=== PATIENT | male | born 1940 | race Caucasian/White ===

== ENCOUNTER → 2016-05-26 | Outpatient (CLI) | payer OTHER, MEDICARE ==
[~2016-05-26] VITALS: Ht 167.6 cm; Wt 73.0 kg
[~2016-05-26] MED LIST: ALPRAZOLAM 0.50.5 M1 PO; ASPIRIN EC325 M1 PO; ASPIRIN EC81 M1 PO; BAYER BACK AND BODY PO; CARAFATE 1 GM TA1 G1 PO; CIPROFLOXACIN500 M1 PO; CYCLOBENZAPRINE10 MG PO; DOLOPHINE HCL10 MG PO; FLAGYL500 MG PO; FLEXERIL PO; HYDROCHLOROTH12.5 MG PO; HYDROCODON-ACE1 EAC5 PO; HYDROCODONE-AP1 EACH PO; MEDROLDOSEPACK PO; MELOXICAM7.5 MG PO; METHADONE HCL 110 M1 PO; METHADONE HCL 110 MG PO; METHADOSE10 MG PO; METOCLOPRAMIDE 55 M1 PO; MIRALAX17 G1; MIRALAX255 GM PO; MOBIC7.5 MG PO; NEURONTIN 300300 M1 PO; NEURONTIN 300M300 M2 PO; NEXIUM 40 MG CA40 M1 PO; NEXIUM40 MG PO; NORCO 10-325 T1 EACH PO; NORCO 5-325 TA1 EACH PO; NORFLEX100 MG PO; ONDANSETRON HCL4 M2 PO; PERCOCET 5-3251 EACH PO; PREDNISONE 20 M20 M1; PROAIR HFA8.5 GM; SERTRALINE HCL100 MG PO; SINUS & ALLERG1 EAC1 PO; SPIRIVA; VITAMIN B-12500 MCG PO; VITAMIN D1000 UNI1 PO; VITAMINC500 PO; XANAX 0.5 MG0.5 M1 PO; XANAX 0.5 MG0.5 MG PO; ZOCOR40 MG PO; ZOLOFT 50 MG TA50 M1 PO; ZOLOFT100 MG PO; ZOLOFT50 MG PO
--- NOTE | ~2016-05-26 | HPC ---
[facility] [place] [address] PAIN MANAGEMENT CONSULTATION Name: JESSEERUDI C Room #: REG GLORIA Simón#: [id number] Admission: 05/26/16 Attend Phys: Lizzeth Tapia MD Discharge: Date of : 40 Report #: [id number] THIS REPORT FOR: //name// CC: Cb Jay DATE OF SERVICE: 05/26/2016 FOLLOWUP COMPLAINT: "I am feeling janice of tired. I still have the ulcers in my stomach. I am anemic." FOLLOWUP HISTORY: The patient is a 75-year-old gentleman who has been followed in the pain clinic because of chronic pain involving his shoulders, back, and iliac spine. He has a history of gastroesophageal ulcers. He feels that he may be pretty anemic at this juncture. After a little exertion such as coming to the pain clinic, he will go home, rest and sleep for many hours. He has called his primary physician. He is scheduled to be seen by a superintendent menagerie. He would like to have his medications renewed. PHYSICAL EXAMINATION: Height 167 cm, weight 73 kg, BMI is 26. He complains of pain in his low back, left side and has some GI discomfort. He has not been vomiting. He has not seen blood. He rates his pain as a 3/10. He does note that he is quite a bit more tired than he would like to be. IMPRESSION: 1. Chronic pain involving shoulders, low back, and legs. 2. History of gastroesophageal problems with ulcers-the patient is calling his primary to be followed up by superintendent menagerie. 3. History of anemia. RECOMMENDATION: We discussed treatment options with the patient. Risks and benefits of opioid therapy were again reviewed. Possible complications were discussed. Development of tolerance can develop. A script for methadone 10 mg 1 p.o. t.i.d., 90 tablets and hydrocodone 10/325 one p.o. t.i.d. has been written. He will call us if he has any problems with his medications. We would like to thank you for letting us participate in his care. We hope he continues to improve. By: 1302 1811 Lizzeth Tapia MD /nt
[2016-05-26 08:32] VITALS: BP 136/81
== END ==
LOC: PAIN 06:41
DX: M25.512 Pain in left shoulder (principal); M25.511 Pain in right shoulder; M79.605 Pain in left leg; M79.604 Pain in right leg; M54.5 Low back pain; D64.89 Other specified anemias; F17.200 Nicotine dependence, unspecified, uncomplicated; Z87.19 Personal history of other diseases of the digestive system

== ENCOUNTER → 2016-07-12 | Outpatient (CLI) | payer OTHER, MEDICARE ==
[~2016-07-12] VITALS: Ht 167.6 cm; Wt 72.6 kg
[~2016-07-12] MED LIST changes: +CYCLOBENZAPRINE5 MG PO; +FEROSUL325 M1 PO; +OMEPRAZOLE40 MG PO; +PROAIR HFA8.5 GM INH
--- NOTE | ~2016-07-12 | S ---
[facility] [place] [address] SURGICAL PATH RPT PROCEDURE Name: MUSHTAQ HOOKS Room #: REG [facility]#: [id number] Admission: 07/12/16 Date of : 40 Discharge: Report #: [id number] Path Case #: [id number] PATHOLOGY REPORT COLLECTION DATE: 07/12/2016 RECEIVED DATE: 07/13/2016 SUBMITTING PHYS: Dr. Nimesh Iniguez OTHER PHYS: Dr. Cb Samuels SPECIMEN(S) RECEIVED: A.Duodenal bx B.Gastric bx * * * * * * * * * * * * FINAL DIAGNOSIS: A. Small bowel mucosa, duodenum, endoscopic biopsy: - No diagnostic abnormalities present. B. Gastric mucosa, endoscopic biopsy: - Focal mild reactive gastropathy. - Negative for intestinal metaplasia or atrophy. - Negative for Helicobacter pylori. COMMENT: Helicobacter pylori immunohistochemical stain performed on block B1 - Negative. PATHOLOGIST: Kristel Medeiros M.D. REPORT ELECTRONICALLY SIGNED BY: Kristel Medeiros M.D. DATE/TIME: 07/14/2016 17:33 * * * * * * * * * * * * GROSS PATHOLOGY: A. Received in formalin labeled "Mushtaq Hooks duodenal biopsy," are 3 segments of ny soft tissue measuring 0.8 x 0.5 x 0.3 cm in aggregate dimensions and ranging from 0.3 to 0.5 cm in maximum dimension. The specimen is submitted entirely in cassette A1. B. Received in formalin labeled "Mushtaq Pinnell, gastric biopsy," are 3 segments of ny soft tissue measuring 0.7 x 0.5 x 0.2 cm in aggregate dimensions and ranging from 0.5 to 0.7 cm in maximum dimension. The specimen is submitted entirely in cassette B1. (KAH; 07/13/2016) CLINICAL HISTORY: Pre-op diagnosis: Anemia Post-op diagnosis: Diverticulosis [facility] [place] [address] SURGICAL PATH RPT PROCEDURE Name: JESSEEMUSHTAQ C Room #: REG [facility].#: [id number] Admission: 07/12/16 Date of : 40 Discharge: Report #: [id number] Path Case #: [id number] INITIAL CPT CODE(S): A; 06531 B; 26983, 32199 Professional services performed by [facility] at [address], [place] [address] Technical services performed by [facility] at [address] [place] [address], [place] [address]. [facility] [address] [place] [address] PHONE: [phone] DIRECTOR: Caesar Perkins M.D. * * * END OF REPORT * * *
--- NOTE | ~2016-07-12 | P ---
[facility] [place] [address] PROCEDURE REPORT Name: RUDI HOOKS [id number] Admission: 07/12/16 Attend Phys: Nimesh Meehan Discharge: Date of : 40 Report #: [id number] THIS REPORT FOR: //name// CC: Nimesh Samuels DO DATE OF SERVICE: 07/12/2016 PROCEDURE PERFORMED: Colonoscopy. HISTORY OF PRESENT ILLNESS: The patient is a 76-year-old male with a history of iron deficiency anemia. Upper endoscopy just performed, which showed mild duodenal stricture, but otherwise normal. No evidence of bleeding. Plan is for colonoscopy next. PROCEDURE: The risks and benefits of the procedure were explained to the patient, those risks including, but not limited to bleeding, perforation, and the risk of sedation. He understood these risks and gave informed consent. Sedation was given using propofol per anesthesia. Next, a digital rectal exam was initially performed, which was normal. Next, using a standard Comprimaton colonoscope, the scope was placed in the patient's anus and advanced under direct vision to the cecum. The overall prep was good. The cecum and ileocecal valve were normal in appearance. The ascending and transverse colon were normal. Scattered diverticula were noted in the descending and sigmoid colon, no evidence of inflammation, otherwise normal. The rectal mucosa was normal. On retroflexion, no abnormalities were noted. The scope was then withdrawn and the procedure terminated. The patient tolerated the procedure well. IMPRESSION: 1. Left-sided diverticulosis. 2. Otherwise, normal colonoscopy. RECOMMENDATIONS: Await duodenal biopsies to rule out celiac sprue. If biopsies are negative, we would monitor hemoglobin. If the patient remained Hemoccult positive in the future, may need to consider an M2 capsule of his small bowel. Of note, he would likely need an upper endoscopy with placement of capsule into the duodenum because of his duodenal stricture. Thank you for allowing me to participate in his care. <ELECTRONICALLY SIGNED> By: Nimesh Iniguez MD 07/15/16 0812 1034 1449 Nimesh Iniguez MD /nt
--- NOTE | ~2016-07-12 | P ---
[facility] [place] [address] PROCEDURE REPORT Name: RUDI HOOKS Room #: REG [facility] Simón#: [id number] Admission: 07/12/16 Attend Phys: Nimesh Meehan Discharge: Date of : 40 Report #: [id number] THIS REPORT FOR: //name// CC: Nimesh Samuels DO DATE OF SERVICE: 07/12/2016 PROCEDURE PERFORMED: Upper endoscopy with biopsies and balloon dilation. HISTORY OF PRESENT ILLNESS: The patient is a 76-year-old male with a history of iron deficiency anemia. He has previous history of duodenal ulcer and esophagitis, he does take omeprazole 40 mg on a daily basis. Most recent hemoglobin was 10.7 and this was on 04/04/2016, with an MCV of 78. He denies any obvious blood in his stools. He does report poor appetite and feeling generally weak. PROCEDURE: The risks and benefits of the procedure were explained to the patient, those risks including, but not limited to bleeding, perforation, and the risk of sedation. He understood these risks and gave informed consent. Sedation was given using propofol per anesthesia. Next, using a standard Kee Squaren upper endoscope, the scope was placed in the patient's mouth and advanced under direct vision through the esophagus, stomach, and into the second portion of the duodenum. The esophagus was normal throughout. The GE junction was normal. Overall, the gastric mucosa was normal. No evidence of erosions or ulcerations. The pylorus was normal and patent. In the first portion of the duodenum, a benign appearing stricture was noted. I was able to pass the scope through this area without difficulty. The second portion of the duodenum was normal. There was no evidence of ulcerations or AVMs. Biopsies were obtained to rule out the possibility of celiac sprue. Because of his poor appetite, I did proceed with balloon dilation of the duodenal stricture using a 10, 11, and 12 mm balloon. This was held in place of 12 mm for one minute. There was no mucosal tear noted after balloon dilation. At this point, the scope was then withdrawn and the procedure terminated. The patient tolerated the procedure well. IMPRESSION: 1. Mild duodenal stricture, status post balloon dilation. 2. Otherwise, normal upper endoscopy. RECOMMENDATIONS: 1. Await biopsy results. 2. Continue PPI therapy. 3. We will proceed with colonoscopy next today. [address] [address] PROCEDURE REPORT Name: RUDI HOOKS Room #: REG [facility] Simón#: [id number] Admission: 07/12/16 Attend Phys: Nimesh Meehan Discharge: Date of : 40 Report #: [id number] Thank you for allowing me to participate in his care. <ELECTRONICALLY SIGNED> By: Nimesh Iniguez MD 07/15/16 0812 1032 1253 Nimesh Iniguez MD /geovany
== END ==
LOC: GI 06-21 11:10
DX: D50.8 Other iron deficiency anemias (principal); K31.9 Disease of stomach and duodenum, unspecified; K57.30 Diverticulosis of large intestine without perforation or abscess without bleeding; K31.5 Obstruction of duodenum; F41.8 Other specified anxiety disorders; G47.30 Sleep apnea, unspecified; J21.9 Acute bronchiolitis, unspecified; K21.9 Gastro-esophageal reflux disease without esophagitis; J43.9 Emphysema, unspecified; D64.89 Other specified anemias; Z98.890 Other specified postprocedural states; Z79.899 Other long term (current) drug therapy; Z96.611 Presence of right artificial shoulder joint
CPT/HCPCS: 62110; 62900

== ENCOUNTER → 2016-09-01 | Outpatient (CLI) | payer OTHER, MEDICARE ==
[~2016-09-01] VITALS: Ht 167.6 cm; Wt 74.8 kg
--- NOTE | ~2016-09-01 | HPC ---
[facility] [place] [address] PAIN MANAGEMENT CONSULTATION Name: RAYRAYPAYTONRUDI C Room #: REG [facility] Simón#: [id number] Admission: 09/01/16 Attend Phys: Lizzeht Tapia MD Discharge: Date of : 40 Report #: [id number] THIS REPORT FOR: //name// CC: Cb Jay DATE OF SERVICE: 09/01/2016 CHIEF COMPLAINT: I went to see my GI doctor and I am still anemic. FOLLOWUP HISTORY: The patient is a 76-year-old gentleman who has been seen in the pain clinic and follow because of chronic pain involving his shoulders, back and legs. He also has a history of gastric problems. There appears to be a problem with his hemoglobin. He has been placed on iron pills in the past. He continues to be anemic. They have done upper and lower gastrointestinal evaluations. He feels that his energy level is quite low. He finds that use of methadone 10 mg p.o. t.i.d. and hydrocodone 10 mg tablets t.i.d. are helpful. Without them, he feels that he is unable to get up and move and engage in activities of daily living. He feels "washed out and tired." He continues to have chronic pain involving his back, shoulders and legs. The patient looks very good color-muhammad. He is pink. Less pale than he has in recent times. PHYSICAL EXAMINATION: Blood pressure 145/88, pulse 89, respiratory rate 16, room air saturation is 97%. Height 5 feet 6 inches, weight 164 pounds, BMI is 26. The patient walks with use of a cane. Complains of pain and discomfort in his lower back with radiation down to the left side and describes the intensity of his discomfort as between 3 and 5. IMPRESSION: 1. Chronic pain involving shoulders, back and legs, improved with use of opioid therapy. The patient states he keeps his medications in a controlled environment and finds that they are quite efficacious and helping him stay active. 2. History of gastroesophageal problems and continues to be followed by his project asst. 3. History of anemia, still being worked up by his primary care doctors and project asst. RECOMMENDATIONS: We will continue with the patient's current medications. We explained the new requirement by the CDC for opioid equivalents of morphine, which are about 100. We will start to slowly decrease his opioid medication to comply. He agrees. We will decrease from three 10 mg t.i.d. to 10 mg a.m., 5 mg midday, 10 mg at bedtime. He will call us if [place] [address] PAIN MANAGEMENT CONSULTATION Name: RUDI HOOKS Room #: REG GLORIA Gr#: [id number] Admission: 09/01/16 Attend Phys: Lizzeth Tapia MD Discharge: Date of : 40 Report #: [id number] change in medication. We would like to thank you for letting us participate in his care. We hope he continues to improve. By: 1546 1709 Lizzeth Tapia MD /nt
[2016-09-01 08:42] VITALS: BP 145/88
== END | disposition home or self-care (01) ==
LOC: PAIN 07:36
DX: M25.512 Pain in left shoulder (principal); M25.511 Pain in right shoulder; M54.5 Low back pain; M79.605 Pain in left leg; M79.604 Pain in right leg; D64.9 Anemia, unspecified; F17.200 Nicotine dependence, unspecified, uncomplicated

== ENCOUNTER → 2017-02-19 | Emergency (ER) | payer OTHER, MEDICARE ==
[~2017-02-19] VITALS: Ht 162.6 cm; Wt 75.3 kg
[~2017-02-19] MED LIST changes: +CYMBALTA60 MG PO; +PANTOPRAZOLE SO40 M1 PO; +PROTONIX40 M1 PO; +TRAZODONE HCL50 MG PO; +WELLBUTRIN SR150 MG PO
--- NOTE | ~2017-02-19 | EKG ---
[place] [address] [facility] [employer] [address] ELECTROCARDIOGRAM REPORT Name: RUDI HOOKS [id number] Admission: 02/19/17 Attend Phys: Discharge: Date of : 40 Report #: [id number] THIS REPORT FOR: //name// [facility] ED Test Date: 2017-02-19 Test Time: 15:10:56 Pat Name: RUDI HOOKS Department: Room: Gender: M Bilingual Customer Service: Ange SUAREZ : 1940 Requested By: Arianna Hobbs Order Number: [id number] MD: Kevan Lujan Measurements Intervals [place] Rate: 83 P: 67 SD: 166 QRS: 57 QRSD: 90 T: 71 QT: 397 QTc: 467 Interpretive Statements Sinus rhythm Atrial premature complexes Baseline wander in lead(s) V3,V4 Compared to ECG 01/23/2015 17:15:34 Atrial premature complex(es) now present Electronically Signed On 02-19-2017 15:54:05 [employer] by Kevan Lujan [email or web address] <ELECTRONICALLY SIGNED> By: Kevan Lujan MD 02/19/17 1554 1510 1510 Kevan Lujan MD /LAURA
[2017-02-19 15:18] LABS: ABSOLUTE NEUTROPHILS 5.7 thou/uL (1.4-8.2); EOSINOPHILS 1.6 % (0.0-3.0); HEMATOCRIT 47.7 % (42.0-52.0); HEMOGLOBIN 16.3 gm/dL (14.0-18.0); LYMPHOCYTES 18.3 % (24.0-44.0); MCH 30.3 pg (26.0-34.0); MCHC 34.2 g/dL (28.0-37.0); MCV 88.6 fL (80.0-100.0); MONOCYTES 5.6 % (1.0-8.0); PLATELET COUNT 199 thou/uL (150-400); POLYS 73.5 % (36.0-66.0); RBC 5.38 mil/uL (4.50-6.00); WBC 7.7 thou/uL (4.0-11.0)
[2017-02-19 15:29] LABS: ANION GAP 10 mmol/L (7-16); BUN 10 mg/dL (7-18); CALCIUM 9.9 mg/dL (8.5-10.1); CHLORIDE 102 mmol/L (98-107); CO2 28 mmol/L (21-32); GLUCOSE 107 mg/dL (74-106); POTASSIUM 4.3 mmol/L (3.5-5.1); SODIUM 140 mmol/L (136-145)
[2017-02-19 15:38] LABS: TROPONIN-I < 0.04 ng/mL (<0.06)
[2017-02-19 15:54] VITALS: BP 140/92
== END ==
LOC: ER 15:00
PROVIDERS: Emergency Medicine
DX: R53.1 Weakness (principal); F32.9 Major depressive disorder, single episode, unspecified; F41.9 Anxiety disorder, unspecified; G89.29 Other chronic pain; M54.9 Dorsalgia, unspecified; J32.9 Chronic sinusitis, unspecified; G47.30 Sleep apnea, unspecified; J44.9 Chronic obstructive pulmonary disease, unspecified; F17.210 Nicotine dependence, cigarettes, uncomplicated; Z86.2 Personal history of diseases of the blood and blood-forming organs and certain disorders involving the immune mechanism; Z88.0 Allergy status to penicillin; Z96.611 Presence of right artificial shoulder joint

== ENCOUNTER 2017-02-20 11:18 | Inpatient (IN) | payer OTHER, MEDICARE ==
[~2017-02-20] VITALS: Ht 162.6 cm; Wt 66.4 kg
--- NOTE | ~2017-02-20 | EKG ---
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 02/20/17 1737 1139 113 Frandy Stewart MD, FACC /EPI
--- NOTE | ~2017-02-20 | HC ---
[facility] [place] [address] CONSULTATION Name: RAYRAYPAYTONRUDI C Room #: 206-P [facility] IN ..#: [id number] Admission: 02/20/17 Attend Phys: Compa Narvaez MD Discharge: Date of : 40 Report #: [id number] THIS REPORT FOR: //name// CC: Cb Narvaez DATE OF SERVICE: 02/21/2017 HISTORY OF PRESENT ILLNESS: This is a 76-year-old male patient who was evaluated by me for any neurological etiology for the patient's passing out spell. The patient was discussed with the nurses looking after this patient. This patient was trying to get up, his blood pressure was trace low and looks like the patient passed out at that time. I do not believe any tonic-clonic activity was noticed. I did not see much on the monitor. His blood pressure was somewhat low, but it was taken after he has been lying. REVIEW OF SYSTEMS: Indicate that this patient has a longstanding intractable back pain he has that is in the middle of the back. It radiates forward. He had MRI long time ago. He does not know what that MRI shows. He does not think he can do any more MRIs because he is very claustrophobic. He has numerous other problems listed in the chart, which include chronic back pain, one time hypertensive emergency, history of upper gastrointestinal bleed, anxiety and depression. This was his relevant 14-point review of systems. PAST MEDICAL HISTORY: Positive for back pain. FAMILY HISTORY: Negative for early age stroke. SOCIAL HISTORY: He has a history of smoking as well as drinking. PHYSICAL EXAMINATION: NEUROLOGICAL: Indicate he is alert. He is responsive. He can follow simple commands. His speech, concentration, fund of knowledge and memory is at baseline. Cranial nerve examination 2 through 12 is unremarkable. His neuromuscular examination for strength, sensation, reflexes and tone are symmetrical. There is no meningeal sign. I could not have a very good look at the patient's fundus. GENERAL: He is a reasonably well-developed individual who does not have any dysmorphic features of eyes, ears and face. NECK: He has no thyroid mass or carotid bruits. EXTREMITIES: Pulses are difficult to feel. He has no edema, cyanosis or jaundice. CARDIAC: Examination does not show any arrhythmia, which can explain the patient's symptom. RESPIRATORY: He has no respiratory difficulty or rhonchi. VITAL SIGNS: His blood pressure has been running persistently low about 98/59 [facility] [address] [place] [address] CONSULTATION Name: RUDI HOOKS Room #: 206-P [facility] IN [facility]#: [id number] Admission: 02/20/17 Attend Phys: Compa Narvaez MD Discharge: Date of : 40 Report #: [id number] and when he came in, HIS blood pressure was as high as 201/117. LABORATORY DATA: Indicate a white count of 28.8, which is increased since yesterday. His BUN is 90 and creatinine is 2.0. IMPRESSION AND PLAN: Unlikely that there is any neurological etiology for the patient's symptoms. His blood pressure has been running persistently low for his size and he was hypertensive when he came in. That lower blood pressure in relation to recent high blood pressure may very well contribute to his symptoms. He will not do an MRI, so I will do an EEG and a carotid Doppler. If that does not show any abnormality neurologically, I do not think we can do much, especially because he also has a chronic renal failure. The most likely cause is systemic and I will suggest continue to concentrate on evaluation and management of his systemic problem, especially his blood pressure. I will look at these testing and followup, but we will suggest concentrating on systemic causes in this patient. Thank you very much for this referral. <ELECTRONICALLY SIGNED> By: Tho Beavers MD 02/23/172000 1522 0038 Tho Beavers MD /nt
--- NOTE | ~2017-02-20 | EEG ---
[facility] [place] [address] ELECTROENCEPHALOGRAM Name: JESSEERUDI Antwon Room #: 206-P ADM IN M.R.#: [id number] Admission: 02/20/17 Attend Phys: Compa Narvaez MD Discharge: Date of : 40 Report #: [id number] THIS REPORT FOR: //name// CC: Cb Narvaez DATE OF SERVICE: 02/21/2017 This patient is being evaluated for an episode where he passed out. EEG is being done to evaluate the possibility of seizures. Background activity in this patient's EEG is about 11 Hz and 40 microvolt. There is a symmetrical activity. Photic stimulation was unremarkable. This patient became drowsy and that is associated with bilateral slowing. Throughout the record, no active epileptiform activity was noticed. IMPRESSION: This patient's electroencephalogram is within normal limit. Thank you very much for this referral. <ELECTRONICALLY SIGNED> By: Tho Beavers MD 02/23/172001 1706 46 Tho Beavers MD /nt
--- NOTE | ~2017-02-20 | P ---
[facility] [place] [address] PROCEDURE REPORT Name: JESSEERUDI Antwon Room #: 206-P ADM IN M.R.#: [id number] Admission: 02/20/17 Attend Phys: Compa Narvaez MD Discharge: Date of : 40 Report #: [id number] THIS REPORT FOR: //name// CC: Cb Samuels DO Compa Narvaez MD DATE OF SERVICE: 02/22/2017 PATIENT OF: Dr. Compa Narvaez and Dr. Cb Samuels. INDICATION FOR PROCEDURE: This patient has had coffee-ground emesis and melena. His hemoglobin has dropped somewhat since admission. EGD is being performed to try to discover the source. His BUN is elevated indicating an upper GI source of blood loss. Informed consent for this procedure was obtained prior to the administration of any medication. The risks of the procedure, which include bleeding, perforation, infection, complications of sedation and the possibility I could miss something have been explained to the patient and he has indicated his consent by signing. Propofol was slowly titrated before and during this procedure for the patient comfort by the anesthesia service. The We[employer]n upper videoscope was introduced through the upper esophageal sphincter and advanced under direct visualization to the descending duodenum. Findings are noted on withdrawal of the scope. In the duodenum, there is a postbulbar ulcerated stricture, through which the scope easily passes. I saw no evidence of any bleeding, but there were some white based ulcerations that were very shallow both pre-stricture and post-stricture. Diffuse gastritis with erythema and a watermelon stomach, nonbleeding. Diffuse severe ulcerations of the entire esophagus, nonbleeding at this time. The scope was withdrawn. The patient went to the recovery area in stable condition. He tolerated the procedure well. IMPRESSION: 1. Postbulbar stricture with ulcerations, nonbleeding, no visible vessels, white based ulcers. Scope passes through the stricture easily, but it may need to be dilated. 2. Diffuse erythema of the entire stomach. 3. 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 4. Severe ulceration of the entire esophagus. RECOMMENDATIONS: To avoid nonsteroidals and aspirin. Continue the proton pump inhibitor drip for another 24 hours and then switch to p.o. Protonix q.[address] [address] PROCEDURE REPORT Name: RUDI HOOKS Room #: 206-P [facility] IN .R.#: [id number] Admission: 02/20/17 Attend Phys: Compa Narvaez MD Discharge: Date of : 40 Report #: [id number] We will start him on a clear liquid diet, advance as tolerated. He should avoid nonsteroidal anti-inflammatory medications and aspirin. He should repeat an EGD in 12 weeks to assess ulcer healing of the esophagus and to see if the biopsies are needed to rule out Daley's. Thank you very much once again for allowing me to participate in his care, Dr. Narvaez and Dr. Samuels. <ELECTRONICALLY SIGNED> By: Yenifer Abbott DO 02/22/17 1736 1208 1658 Yenifer Abbott DO /nt
[2017-02-20 11:18] VITALS: BP 201/117
[~2017-02-20 11:18] MED LIST changes: -CYMBALTA60 MG PO; -PANTOPRAZOLE SO40 M1 PO; -PROTONIX40 M1 PO; -TRAZODONE HCL50 MG PO; -WELLBUTRIN SR150 MG PO
[2017-02-20 12:09] LABS: ABSOLUTE NEUTROPHILS 15.7 thou/uL (1.4-8.2); BASOPHILS 0.4 % (0.0-2.0); HEMATOCRIT 51.2 % (42.0-52.0); HEMOGLOBIN 17.6 gm/dL (14.0-18.0); LYMPHOCYTES 4.7 % (24.0-44.0); MCH 30.6 pg (26.0-34.0); MCHC 34.3 g/dL (28.0-37.0); MCV 89.1 fL (80.0-100.0); MONOCYTES 2.9 % (1.0-8.0); PLATELET COUNT 219 thou/uL (150-400); RBC 5.75 mil/uL (4.50-6.00); WBC 17.1 thou/uL (4.0-11.0)
[2017-02-20 12:17] LABS: ANION GAP 13 mmol/L (7-16); BUN 15 mg/dL (7-18); CALCIUM 10.3 mg/dL (8.5-10.1); CHLORIDE 98 mmol/L (98-107); CO2 27 mmol/L (21-32); CREATININE 1.1 mg/dL (0.7-1.3); GLUCOSE 186 mg/dL (74-106); POTASSIUM 4.2 mmol/L (3.5-5.1); SODIUM 138 mmol/L (136-145)
[2017-02-20 12:27] LABS: ALBUMIN 4.3 g/dL (3.4-5.0); SGOT 21 U/L (15-37); SGPT 23 U/L (30-65); TOTAL BILIRUBIN 0.5 mg/dL (<0.1-1.0); TOTAL PROTEIN 8.8 g/dL (6.4-8.2); TROPONIN-I < 0.04 ng/mL (<0.06)
[2017-02-20 14:37] LABS: URINE BLOOD 3+ (Negative); URINE CLARITY CLEAR; URINE COLOR YELLOW; URINE GLUCOSE-RANDOM* NEGATIVE (Negative); URINE KETONES 3+ (Negative); URINE LEUKOCYTES-REFLEX NEGATIVE (Negative); URINE NITRITE-REFLEX NEGATIVE (Negative); URINE PROTEIN (DIPSTICK) 3+ (Negative); URINE SPECIFIC GRAVITY >= 1.030 (1.005-1.035); URINE UROBILINOGEN 0.2 E.U./dl (0.2-1.0)
[2017-02-20 14:39] LABS: ICTOTEST (BILI CONFIRMATORY) Negative (Negative); URINE BILIRUBIN NEGATIVE (Negative)
[2017-02-20 14:47] LABS: MUCUS 0-3 Light strn/LPF (None Seen); SQUAMOUS 0-3 Few /LPF (0-3)
[2017-02-20 14:48] LABS: BACTERIA-REFLEX 1-9 Few /HPF (None Seen); HYALINE CASTS 0-3 Few /LPF (None Seen); URINE WBC-REFLEX 6-15 Few /HPF (0-5); WBC CLUMPS Few (None Seen)
[2017-02-20 14:49] LABS: CRYSTALS None Seen /LPF (None Seen); URINE RBC >20 Many /HPF (0-2)
[2017-02-20 15:07] LABS: AMP/METHAMP Negative (Negative); BARBITURATES Negative (Negative); BENZODIAZEPINES Negative (Negative); COCAINE Negative (Negative); METHADONE POSITIVE (Negative); OPIATES POSITIVE (Negative); PCP Negative (Negative)
[2017-02-20 16:17] LABS: TSH 0.735 uIU/mL (0.358-3.740)
[2017-02-20 16:49] VITALS: BP 138/95
[2017-02-20 16:53] VITALS: BP 138/95
[2017-02-20 17:05] VITALS: BP 137/88
[2017-02-20 18:18] VITALS: BP 113/72
[2017-02-20 20:30] VITALS: BP 101/61
[2017-02-21] VITALS (8 sets, daily range): BP systolic 88–130; BP diastolic 55–76
[2017-02-21 09:12] LABS: HEMATOCRIT 42.9 % (42.0-52.0); MCH 29.6 pg (26.0-34.0); MCHC 33.4 g/dL (28.0-37.0); MCV 88.4 fL (80.0-100.0); PLATELET COUNT 218 thou/uL (150-400); RBC 4.86 mil/uL (4.50-6.00); RDW 13.2 % (10.5-14.5); WBC 28.8 thou/uL (4.0-11.0)
[2017-02-21 09:14] LABS: GLYCOHEMOGLOBIN (HGB A1C) 5.3 % (4.8-5.6)
[2017-02-21 09:19] LABS: CALCIUM 9.6 mg/dL (8.5-10.1); POTASSIUM 4.2 mmol/L (3.5-5.1)
[2017-02-21 09:22] LABS: HEMOGLOBIN 14.4 gm/dL (14.0-18.0)
[2017-02-21 10:53] LABS: ATYPICAL LYMPHS 8 %
[2017-02-21 16:49] LABS: HEMATOCRIT 42.3 % (42.0-52.0); HEMOGLOBIN 13.8 gm/dL (14.0-18.0); MCH 29.8 pg (26.0-34.0); MCHC 32.7 g/dL (28.0-37.0); RBC 4.65 mil/uL (4.50-6.00); RDW 13.2 % (10.5-14.5); WBC 25.1 thou/uL (4.0-11.0)
[2017-02-21 17:01] LABS: CALCIUM 9.3 mg/dL (8.5-10.1); CREATININE 1.8 mg/dL (0.7-1.3); POTASSIUM 4.1 mmol/L (3.5-5.1)
[2017-02-22 00:27] VITALS: BP 132/79
[2017-02-22 03:16] LABS: HEMATOCRIT 33.6 % (42.0-52.0); MCH 30.1 pg (26.0-34.0); MCHC 33.4 g/dL (28.0-37.0); MCV 90.1 fL (80.0-100.0); RBC 3.72 mil/uL (4.50-6.00); RDW 13.1 % (10.5-14.5); WBC 19.2 thou/uL (4.0-11.0)
[2017-02-22 03:23] LABS: CALCIUM 8.6 mg/dL (8.5-10.1); CREATININE 1.4 mg/dL (0.7-1.3); HEMOGLOBIN 11.2 gm/dL (14.0-18.0); POTASSIUM 3.9 mmol/L (3.5-5.1)
[2017-02-22 05:09] VITALS: BP 99/65
[2017-02-22 08:00] VITALS: BP 126/68
[2017-02-22 10:58] LABS: HEMATOCRIT 33.3 % (42.0-52.0); HEMOGLOBIN 11.3 gm/dL (14.0-18.0)
[2017-02-22 15:40] VITALS: BP 93/63
[2017-02-22 19:43] VITALS: BP 106/62
[2017-02-23] VITALS (7 sets, daily range): BP systolic 93–126; BP diastolic 53–56
[2017-02-23 03:41] LABS: CALCIUM 8.4 mg/dL (8.5-10.1); CREATININE 0.9 mg/dL (0.7-1.3); POTASSIUM 3.9 mmol/L (3.5-5.1)
[2017-02-23 03:44] LABS: HEMATOCRIT 25.7 % (42.0-52.0); MCH 31.2 pg (26.0-34.0); MCHC 34.5 g/dL (28.0-37.0); MCV 90.3 fL (80.0-100.0); RBC 2.85 mil/uL (4.50-6.00); RDW 13.2 % (10.5-14.5)
[2017-02-23 03:48] LABS: HEMOGLOBIN 8.9 gm/dL (14.0-18.0)
[2017-02-23] MEDS ORDERED: HYDROCODON-ACE1 EAC5 PO ×2 (07:58→08:02)
[2017-02-23] MEDS ORDERED: METHADONE HCL 110 M1 PO (07:58)
[2017-02-24 04:31] LABS: HEMATOCRIT 24.4 % (42.0-52.0); HEMOGLOBIN 8.2 gm/dL (14.0-18.0); MCH 30.7 pg (26.0-34.0); MCHC 33.7 g/dL (28.0-37.0); MCV 90.9 fL (80.0-100.0); RBC 2.68 mil/uL (4.50-6.00); RDW 13.3 % (10.5-14.5); WBC 9.2 thou/uL (4.0-11.0)
[2017-02-24 04:38] LABS: CALCIUM 7.9 mg/dL (8.5-10.1); CREATININE 0.8 mg/dL (0.7-1.3); POTASSIUM 3.3 mmol/L (3.5-5.1)
[2017-02-24 05:34] VITALS: BP 103/53
[2017-02-24 07:30] VITALS: BP 123/59
[2017-02-24 11:31] VITALS: BP 145/61
[2017-02-24] MEDS ORDERED: PANTOPRAZOLE SO40 M1 PO (14:16)
[2017-02-24 14:42] VITALS: BP 126/56
[2017-02-24 14:44] VITALS: BP 126/56
[2017-02-28] MEDS ORDERED: METHADONE HCL 110 M1 PO ×2 (08:41→08:49)
[2017-02-28] MEDS ORDERED: HYDROCODON-ACE1 EAC5 PO ×2 (08:41→08:49)
[2017-02-28] MEDS ORDERED: PROTONIX40 M1 PO (10:30)
[2017-02-28] MEDS ORDERED: WELLBUTRIN SR150 MG PO (10:31)
[2017-03-14] MEDS ORDERED: PROTONIX40 M1 PO (10:01)
[2017-03-14] MEDS ORDERED: CYMBALTA60 MG PO (10:01)
[2017-03-14] MEDS ORDERED: METHADONE HCL 110 M1 PO (10:55)
[2017-03-14] MEDS ORDERED: HYDROCODON-ACE1 EAC5 PO (10:55)
[2017-10-10] MEDS ORDERED: TRAZODONE HCL50 MG PO (09:31)
[2017-10-10] MEDS ORDERED: WELLBUTRIN SR150 MG PO (09:33)
[2017-10-10] MEDS ORDERED: HYDROCODON-ACE1 EAC5 PO ×2 (09:41→09:43)
[2017-10-10] MEDS ORDERED: METHADONE HCL 110 M1 PO ×2 (09:41→09:43)
== END 2017-02-24 15:26 | disposition home or self-care (01) | DRG 871 ==
LOC: ER 11:18 → EROBS 12:57 → 2N 12:57
PROVIDERS: Hospitalist; Nurse Practitioner; Nurse Practitioner Family
PROC: 0DJ08ZZ Inspection of Upper Intestinal Tract, Via Natural or Artificial Opening Endoscopic (ICD-10-PCS; principal; 2017-02-22)
DX: A41.9 Sepsis, unspecified organism (principal); N17.0 Acute kidney failure with tubular necrosis; N39.0 Urinary tract infection, site not specified; I16.1 Hypertensive emergency; K92.0 Hematemesis; K92.1 Melena; D62 Acute posthemorrhagic anemia; M54.9 Dorsalgia, unspecified; F32.9 Major depressive disorder, single episode, unspecified; G89.29 Other chronic pain; F41.9 Anxiety disorder, unspecified; Z96.611 Presence of right artificial shoulder joint; J44.9 Chronic obstructive pulmonary disease, unspecified; I16.0 Hypertensive urgency; N18.9 Chronic kidney disease, unspecified; F17.210 Nicotine dependence, cigarettes, uncomplicated; G47.33 Obstructive sleep apnea (adult) (pediatric); M48.061 Spinal stenosis, lumbar region without neurogenic claudication; K57.90 Diverticulosis of intestine, part unspecified, without perforation or abscess without bleeding; Z88.0 Allergy status to penicillin; Z79.891 Long term (current) use of opiate analgesic; Z87.11 Personal history of peptic ulcer disease; Z79.899 Other long term (current) drug therapy
CPT/HCPCS: 10194; 62110; 62900

== ENCOUNTER → 2017-02-28 | Outpatient (CLI) | payer OTHER, MEDICARE ==
[~2017-02-28] VITALS: Ht 167.6 cm; Wt 75.9 kg
[~2017-02-28] MED LIST changes: +CYMBALTA60 MG PO; +PANTOPRAZOLE SO40 M1 PO; +PROTONIX40 M1 PO; +TRAZODONE HCL50 MG PO; +WELLBUTRIN SR150 MG PO
--- NOTE | ~2017-02-28 | HPC ---
[facility] [address] [place] [address] PAIN MANAGEMENT CONSULTATION Name: JESSEERUDI C Room #: REG [facility] Simón#: [id number] Admission: 02/28/17 Attend Phys: Lizzeth Tapia MD Discharge: Date of : 40 Report #: [id number] THIS REPORT FOR: //name// CC: Cb Jay DATE OF SERVICE: 02/28/2017 FOLLOWUP COMPLAINT: "I was in the hospital last week and would like to get an injection in my back." FOLLOWUP HISTORY: The patient is a 76-year-old gentleman who has been followed in the pain clinic because of chronic pain involving his shoulders, back, and some discomfort in his legs. Trigger point injections in the back area in the past have been quite beneficial. He recently was hospitalized. Continues to be anemic. He has noted because of his bed rest and current situation a worsening of pain and discomfort in the back area. Trigger point injections in that area has been helpful. He rates his pain overall as a 10/10. He describes it as a sharp, throbbing, aching sensation, and notes that the pain is more problematic with activity. He is still feeling pretty weak and is not up to his usual level of pep. He continues to use methadone and hydrocodone. He finds that they are helpful. He is aware that opioid medications can cause problems with tolerance as well as addiction. He does not feel he is having any addiction issues at this juncture. He does feel somewhat tired because of his current situation. ALLERGIES: PENICILLIN. MEDICATIONS: Wellbutrin SR 150 mg, hydrocodone/acetaminophen 10/325 t.i.d. as needed, methadone 10 mg 1 tablet a.m. 1/2 tablet mid day, one tablet at bedtime; pantoprazole 40 mg b.i.d., ProAir 1 puff p.r.n., Flexeril 5 mg 1 p.o. t.i.d. for muscle spasms, omeprazole 40 mg before meals, alprazolam 0.5 mg t.i.d., iron 325 b.i.d., and gabapentin 300 mg 1 tab t.i.d. PHYSICAL EXAMINATION: GENERAL: The patient is a well-developed white male. He does appear slight in build. Appearance, appears of stated age. Oriented x 3 to person, place and time. Affect is appropriate. He does appear slightly tired. VITAL SIGNS: Height 5 feet 6 inches, weight 164 pounds, BMI is 27. Blood pressure 126/74, pulse 100, respiratory rate 20, room air saturation 97%. HEENT: Head is atraumatic. Ears, appear to have reasonable hearing. Extraocular eye muscles intact. Nose is atraumatic without drainage. Mucous membranes are moist. NECK: Without at adenopathy or masses. LUNGS: Decreased lung sounds bilaterally. HEART: Regular rate. [address] [address] PAIN MANAGEMENT CONSULTATION Name: RUDI HOOKS Room #: [facility]#: [id number] Admission: 02/28/17 Attend Phys: Lizzeth Tapia MD Discharge: Date of : 40 Report #: [id number] ABDOMEN: He does have some abdominal discomfort. MUSCULOSKELETAL: Without significant scoliosis. Some kyphotic appearance. Gait, somewhat slow. The patient walks with use of a cane. He has some pain in the T1, C7 areas to palpation along the midline. He has pain in the left low back in the rhomboid area as well as in the area of the scapula. He has some discomfort in the left L4-L5 paraspinous muscle area on the left as well as in the iliac crest area. He notes some tingling of his left foot and sometimes experiences cramping. PAIN CLINIC ASSESSMENT: 1. He is not being treated for osteoarthritis or rheumatoid arthritis. 2. Pain intensity 10/10. 3. Fall risk: The patient does sometimes need help with standing and walking, uses a cane. He has not fallen in the last 3 months. 4. The patient is not on a blood thinner. 5. He is not being treated for hypertension. 6. He is on opioid therapy and uses greater than 6 weeks has signed an opioid contract. 7. Functional assessment is generally eight in the categories of general activity, mood, walking ability, normal work, relationships with others, sleep, and life enjoyment. This is a high impact score. 8. Risk assessment tool score of 1, low risk. 9. Denies use of drugs. 10. Tobacco. He does continue to smoke a pipe. He denies use of alcoholic beverages. IMPRESSION: 1. Chronic pain involving the shoulders, back and lower left hip area. The patient continues to find that opioid medications are helpful. 2. History of gastroesophageal problems, continues to be followed by his hand shaker and recently discharged from the hospital. 3. History of anemia. Continues to be followed by his primary care physicians. RECOMMENDATIONS: We discussed treatment options with the patient. At this juncture, we will renew his medications. We will consider trigger point injections in the future. We will provide the patient with his opioid medications which are methadone 10 mg 75 tile tablets per month and hydrocodone 10/325 mg. He will call us if he has any problems with his medications. Hopefully, he continues to do well. <ELECTRONICALLY SIGNED> By: Lizzeth Tapia MD 03/14/17 [id number] Lizzeth Tapia MD /[facility]
[2017-02-28 10:17] VITALS: BP 126/74
== END ==
LOC: PAIN
DX: G89.29 Other chronic pain (principal); M54.9 Dorsalgia, unspecified; M25.511 Pain in right shoulder; M25.512 Pain in left shoulder; M25.552 Pain in left hip; F11.90 Opioid use, unspecified, uncomplicated

== ENCOUNTER → 2017-03-14 | Outpatient (CLI) | payer OTHER, MEDICARE ==
[~2017-03-14] VITALS: Ht 167.6 cm; Wt 71.2 kg
--- NOTE | ~2017-03-14 | HPC ---
[facility] [place] [address] [address] [place] [address] PAIN MANAGEMENT CONSULTATION Name: JESSEERUDI C Room #: REG [facility] Simón#: [id number] Admission: 03/14/17 Attend Phys: Lizzeth Tapia MD Discharge: Date of : 40 Report #: [id number] THIS REPORT FOR: //name// CC: Cb Jay DATE OF SERVICE: 03/14/2017 FOLLOWUP COMPLAINT: "I was in the hospital on 02/23/2017 and now the pain is a little better." FOLLOWUP HISTORY: The patient is a 76-year-old gentleman who has been seen in the pain clinic in the past because of chronic pain involving his shoulders, back, and hip area. He has returned today for renewal of his medications. He rates his pain as a 2/10. He does still have some pain and discomfort in his low back area. There is discomfort in the area of his neck. Pain radiates down into point between his shoulder blade. He has some pain along the left hip area. It is hard to find a trigger point, but there is some generalized pain in all of these areas. He would like to undergo a renewal of his medications. He has not had any problems since he has been discharged from the hospital. He has been staying out of the public given that the flu is rampant at this juncture. He feels that his medications continue to be helpful and he would like to have them renewed. ALLERGIES: PENICILLIN. CURRENT MEDICATIONS: Have been reviewed and include Wellbutrin-SR 150 mg, hydrocodone/acetaminophen 10/325 one p.o. t.i.d., methadone 10 mg 1 tablet a.m., one-half tablet midday, one tablet at bedtime, pantoprazole 40 mg b.i.d., ProAir 1 puff p.r.n., Flexeril 5 mg 1 p.o. t.i.d. for muscle spasms, omeprazole 40 mg before meals, alprazolam 0.5 mg t.i.d., iron 325 mg b.i.d., and gabapentin 300 mg 1 p.o. t.i.d. PHYSICAL EXAMINATION: GENERAL: The patient is a well-developed white male. He does have a slight build. He does appear to be somewhat stronger than he was when we saw him a few weeks ago. He is alert and oriented x 3 [address], [address], and time. His affect is appropriate. He appears somewhat less tired than he did at the last visit. VITAL SIGNS: Blood pressure 128/73, pulse 68, respiratory rate 18, room air saturation is 98%. HEENT: Head is atraumatic. Ears are not problematic. Hearing is within normal limits. Eyes, extraocular eye muscles intact. Nose, atraumatic without drainage. Mucous membranes moist. NECK: Without adenopathy or masses. LUNGS: Decreased breath sounds bilaterally. [address] [address] PAIN MANAGEMENT CONSULTATION Name: RUDI HOOKS [id number] Admission: 03/14/17 Attend Phys: Lizzeth Tapia MD Discharge: Date of : 40 Report #: [id number] HEART: Rate is 88. ABDOMEN: Flat, without complaint of discomfort. MUSCULOSKELETAL: No significant scoliosis. Some kyphosis in appearance and walks with somewhat of a forward bending gait. The patient uses cane. Continues to have some pain in the upper back area as well as in the area between his shoulder blades. There is discomfort along the left iliac crest. Palpation in this area can reproduce some discomfort. There is some global discomfort without a specific trigger point noted. Continues to have tingling in his left foot and sometimes experiences some cramping sensation. PAIN ASSESSMENT: 1. The patient is not being treated for osteoarthritis or rheumatoid arthritis. 2. Pain intensity is 2/10 today. 3. Fall risk. The patient does move with use of his cane. He has not fallen in the last 3 months. 4. The patient is not on a blood thinner. 5. The patient is not being treated for hypertension. 6. The patient is on opioid therapy and has signed an opioid contract with the pain clinic. 7. Functional assessment is generally #8 in the categories identified, which are activity, mood, walking ability, work, relationships to others, sleep, enjoyment of life. This is a high impact score. 8. Risk assessment tool, the patient is low risk. 9. Denies use of drugs. 10. Continues to smoke a pipe. The patient does not use alcoholic beverages. IMPRESSION: 1. Chronic pain involving the shoulders, back, and lower hip area. The patient continues to find the opioid medications helpful and takes them as prescribed. 2. History of gastroesophageal problems. Continue to be followed by his construction accountant, recently discharged from the hospital. 3. Chronic anemia. 4. We will continue to follow up with his primary physician. He has had transfusions in the distant past. RECOMMENDATIONS: We will continue with his current medical regimen. A renewal of his script for hydrocodone, methadone, and Sanders have been written. He will call us if he has any problems with his medications. Hopefully, he continues to improve in his strength. Hopefully, he does not require additional hospitalization. We would like to thank you for letting us participate in his care. We hope he continues to improve. <ELECTRONICALLY SIGNED> By: Lizzeth Tapia MD 04/18/17 [id number] Lizzeth Tapia MD /PMT
[2017-03-14 09:57] VITALS: BP 128/73
== END ==
LOC: PAIN 07:03
DX: G89.29 Other chronic pain (principal); M25.511 Pain in right shoulder; M25.512 Pain in left shoulder; M25.559 Pain in unspecified hip; M54.9 Dorsalgia, unspecified; F11.90 Opioid use, unspecified, uncomplicated; D64.89 Other specified anemias

== ENCOUNTER → 2018-05-08 | Outpatient (CLI) | payer OTHER, MEDICARE ==
[~2018-05-08] VITALS: Ht 167.6 cm; Wt 73.8 kg
--- NOTE | ~2018-05-08 | HPC ---
[facility] [address] [place] [address] PAIN MANAGEMENT CONSULTATION Name: RAYRAYPAYTONRUDI C Room #: REG [facility] Gr#: [id number] Admission: 05/08/18 ������������������ Attend Phys: Lizzeth Tapia MD Discharge: ������������������ Date of : 40 Report #: [id number] THIS REPORT FOR: //name// CC: Cb Tapia DATE OF SERVICE: 05/08/2018 CHIEF COMPLAINT: Here for medication renewal. FOLLOWUP HISTORY: The patient is a 77-year-old gentleman who has been followed in the Pain Clinic for quite some time. He has had chronic pain for a number of years. He has some problems with degenerative joint disease. Also, has some problems with swallowing. He has had problems with his stomach secondary to irritation. Also, has had some problems with sinus problems. Overall today, things are going reasonably well. He has returned to the Pain Clinic. He generally reports that he hurts all over. Has significant fatigue and weakness. Has pain in his lower back, neck as well as pain between his shoulder blades. Rates his pain as a 5/10 with his current medical regimen. Has some sharp, throbbing, aching discomfort. Notes the pain sometimes improves with use of rest, sitting as well as with use of his medications. He has returned today with desired to undergo to have his medications renewed. States that he has taken the medication as prescribed. He will be less mobile and active without his medications. He keeps his medications in a guarded area. ALLERGIES: PENICILLIN. CURRENT MEDICATIONS: Methadone 10 mg 1 tablet in the morning, one half tablet midday, one tablet at bedtime, hydrocodone 10/325 one p.o. t.i.d., trazodone 50 mg at bedtime, Protonix 40 mg, Cymbalta 60 mg, Wellbutrin-SR 150 mg, albuterol inhaler 1 puff p.r.n., cyclobenzaprine 5 mg 1 p.o. t.i.d., alprazolam 0.5 mg, anxiety, iron 325 mg, gabapentin 300 mg 1 tablet t.i.d. PAIN CLINIC ASSESSMENT/PQRS: 1. The patient has some osteoarthritic changes in his low back. He is not being treated for rheumatoid arthritis. 2. Height 5 feet 6 inches, weight 162 pounds, BMI is 26.3. 3. Vital signs: Blood pressure 152/98, pulse 83, respiratory rate 18, room air saturation 97%. 4. Pain intensity 5/10. 5. Fall risk. The patient has not fallen in the last 3 months. 6. Blood thinner. The patient is not on a blood thinning medication. 7. Hypertension. The patient has been treated for hypertension. 8. Opioids greater than 6 weeks. The [facility]. 9. Risk assessment tool, low [place] [address] PAIN MANAGEMENT CONSULTATION Name: RUDI HOOKS [facility] [id number] Admission: 05/08/18 ������������������ Attend Phys: Lizzeth Tapia MD Discharge: ������������������ Date of : 40 Report #: [id number] 10. Functional assessment tool 56/. 11. Recreational drug use: The patient denies. 12. Tobacco: The patient has smoked cigarettes in the past. 13. Alcohol: The patient denies frequent use of alcoholic beverages. PHYSICAL EXAMINATION: GENERAL: The patient is a well-developed, well-nourished white male. He is alert and oriented x 3. Affect is appropriate. Speech is fluent. VITAL SIGNS: Heart rate 88 HEENT: Normocephalic, atraumatic. Extraocular eye muscles intact. The patient wears glasses. Mucous membranes are moist. NECK: Without adenopathy. LUNGS: Decreased breath sounds bilaterally. MUSCULOSKELETAL: The patient without significant scoliosis, kyphosis. He does walk with a somewhat forward bend in his gait. Upper extremity muscle strength is judged to be 4/5 for the major muscle groups and approximately 4+/5 for the lower extremities. IMPRESSION: 1. Chronic pain involving shoulders, back, lower hips. 2. History of gastroesophageal problems continues to be followed by his health care sanitary technician. 3. Chronic anemia. 4. History of blood transfusions in the past. RECOMMENDATIONS: We discussed treatment options with the patient. At this juncture, we will continue with his current medications. Feels that the medications are helpful. He is able to engage in do more with them. Keeps medication in a guarded area. He is aware that opioid medications can be helpful initially and can lose their effectiveness secondary to intolerance. The patient is aware also that the development of addiction may occur with prolonged use of these medications. Overall, he feels things are going reasonably well. He would like to continue with the medications. He is able to live a more for field live with them. He will be able to do achieve a whole lot less without their use. Thank you very much, we would like to thank you for letting us participate in his care. We hope he continues to improve. ��������������������������������������������� ���������������������������������������� By: ��������������������������������������������� [id number] Lizzeth Tapia MD /[facility]
[2018-05-08 11:05] VITALS: BP 152/98
--- NOTE | 2018-05-08 11:17 | NUR ---
Pain Clinic Assessment: 1. History of Osteoarthritis: BACK History of Rheumatoid Arthritis: Not Applicable 2. Height: 5 ft. 6 in. 167.6 cm. Weight: 162.6 lb. oz. 73.755 kg. Patient's BMI: 26.3 3. Vital Signs: BP: 152/98 Pulse: 83 Resp: 18 Temp: 02 Sat: 97 ECG Mon: 4. Pain Intensity: 5 5. Fall Risk: Dizziness: N Needs help standing or walking: N Fallen in the last 3 months: N Fall risk comments: 6. Patient on Blood Thinner: None 7. History of Hypertension: Y 8. Opioid Therapy greater than 6 weeks: Y Opiate Contract Signed: 02/01/16 9. Risk Assessment Tool Provided: BEAU 10. Functional Assessment Tool: 11. Recreational Drug Use: Never Drug Type: Tobacco Use: Light Tobacco Smoker Tobacco Type: Amount or Packs/day: How Many Years: Alcohol Use: No Frequency: Quant:
== END ==
LOC: PAIN 06:56
DX: M54.5 Low back pain (principal); G89.29 Other chronic pain; M25.511 Pain in right shoulder; M25.512 Pain in left shoulder; M25.551 Pain in right hip; M25.552 Pain in left hip; D64.9 Anemia, unspecified; Z79.899 Other long term (current) drug therapy; Z86.2 Personal history of diseases of the blood and blood-forming organs and certain disorders involving the immune mechanism; Z87.19 Personal history of other diseases of the digestive system

== ENCOUNTER 2018-10-05 15:02 | Inpatient (IN) | payer OTHER, MEDICARE ==
[~2018-10-05] VITALS: Ht 167.6 cm; Wt 67.2 kg
[2018-10-05 15:09] VITALS: BP 135/88
[2018-10-05 15:33] LABS: ABSOLUTE NEUTROPHILS 18.4 thou/uL (1.4-8.2); BASOPHILS 0.2 % (0.0-2.0); EOSINOPHILS 0.3 % (0.0-3.0); HEMATOCRIT 54.4 % (42.0-52.0); HEMOGLOBIN 18.3 gm/dL (14.0-18.0); MCH 29.7 pg (26.0-34.0); MCHC 33.7 g/dL (28.0-37.0); MCV 88.3 fL (80.0-100.0); MONOCYTES 3.5 % (1.0-8.0); PLATELET COUNT 261 thou/uL (150-400); RBC 6.16 mil/uL (4.50-6.00)
[2018-10-05 15:40] LABS: ANION GAP 13 mmol/L (7-16); BUN 24 mg/dL (7-18); CALCIUM 10.7 mg/dL (8.5-10.1); CHLORIDE 94 mmol/L (98-107); CO2 27 mmol/L (21-32); CREATININE 1.4 mg/dL (0.7-1.3); GLUCOSE 157 mg/dL (74-106); POTASSIUM 4.7 mmol/L (3.5-5.1); SODIUM 134 mmol/L (136-145)
[2018-10-05 15:51] LABS: ALBUMIN 4.2 g/dL (3.4-5.0); LIPASE 75 U/L (73-393); SGOT 15 U/L (15-37); SGPT 15 U/L (30-65); TOTAL BILIRUBIN 0.5 mg/dL (<0.1-1.0); TROPONIN-I <0.06 ng/mL (<0.06)
[2018-10-05] MEDS ORDERED: LATANOPROST 0.7.5 ML OPHTHALMIC (15:59)
[2018-10-05] MEDS ORDERED: METHADONE HCL 110 M1 PO (15:59)
[2018-10-05] MEDS ORDERED: OMEPRAZOLE40 MG PO (16:00)
[2018-10-05 18:15] VITALS: BP 143/79
[2018-10-05 18:32] LABS: URINE BILIRUBIN NEGATIVE (Negative); URINE BLOOD 2+ (Negative); URINE CLARITY CLEAR; URINE COLOR YELLOW; URINE GLUCOSE-RANDOM* NEGATIVE (Negative); URINE KETONES 1+ (Negative); URINE LEUKOCYTES-REFLEX NEGATIVE (Negative); URINE NITRITE-REFLEX NEGATIVE (Negative); URINE PROTEIN (DIPSTICK) 3+ (Negative); URINE SPECIFIC GRAVITY 1.025 (1.005-1.035); URINE UROBILINOGEN 0.2 E.U./dl (0.2-1.0)
[2018-10-05 18:59] LABS: CRYSTALS None Seen /LPF (None Seen); MUCUS 0-3 Light strn/LPF (None Seen); SQUAMOUS None Seen /LPF (0-3); URINE RBC 3-10 Few /HPF (0-2); URINE WBC-REFLEX 0-5 Rare /HPF (0-5)
[2018-10-05 19:00] LABS: HYALINE CASTS 4-10 Moderate /LPF (None Seen)
[2018-10-05 19:16] VITALS: BP 155/105
[2018-10-05 19:52] VITALS: BP 162/52
[2018-10-05 20:25] VITALS: BP 134/93
--- NOTE | 2018-10-06 00:55 | NUR ---
ASSUMED CARE OF PT AR 2000HRS. PT IS AOX4 AND IS COMPLIENT WITH POC. PT WAS ORIENTED TO HIS ROOM AND THE UNIT. PT WAS ABLE TO ANSWER ALL ADMISSION RELATED QUESTIONS. ADMISSION ASSESSMENT WAS NEGATIVE FOR ACUTE DISTRESS. PT DENIES ANY NAUSEA AT THIS TIME. PT HAS A STEADY GAIT. PT REPORTED SOME ABD AND LOWER BACK PAIN AND WAS TREATED WITH PRN PAIN MEDS. THE NIGHT PROGRESSED, PT WAS ABLE TO GET COMFORTABLE AND SLEEP PART OF THE SHIFT. WILL CONTINUE TO MONITOR.
[2018-10-06 03:18] VITALS: BP 129/85
[2018-10-06 05:14] LABS: HEMATOCRIT 47.9 % (42.0-52.0); MCHC 33.8 g/dL (28.0-37.0); MCV 88.7 fL (80.0-100.0); RBC 5.4 mil/uL (4.50-6.00); RDW 13.8 % (10.5-14.5); WBC 23.6 thou/uL (4.0-11.0)
[2018-10-06 05:19] LABS: HEMOGLOBIN 16.2 gm/dL (14.0-18.0)
[2018-10-06 05:39] LABS: ALBUMIN 3.4 g/dL (3.4-5.0); CALCIUM 9.3 mg/dL (8.5-10.1); POTASSIUM 4.7 mmol/L (3.5-5.1); TOTAL BILIRUBIN 0.4 mg/dL (<0.1-1.0); TOTAL PROTEIN 7.2 g/dL (6.4-8.2)
[2018-10-06 08:00] VITALS: BP 129/78
[2018-10-06 15:00] VITALS: BP 140/73
--- NOTE | 2018-10-06 16:46 | NUR ---
Assumed pt care this am VS have been stable. Pt did complain of pain. managed with medication, though pt has mentioned this has been chronic. No nausea or vomiting was noted today. Pt still feels he is weak and preferred to stay on the bed vs going to the recliner. Meals and oral medication tolerated well, though most meals were not consumed since pt wanted to take it slow for fear of having an episode of n & v. POC followed no signs or other verbalizations of distress have been noted.
[2018-10-06 19:29] VITALS: BP 115/76
[2018-10-07 04:28] LABS: ABSOLUTE NEUTROPHILS 14.7 thou/uL (1.4-8.2); BASOPHILS 0.3 % (0.0-2.0); EOSINOPHILS 0.1 % (0.0-3.0); HEMATOCRIT 37.6 % (42.0-52.0); LYMPHOCYTES 8.7 % (24.0-44.0); MCHC 33.6 g/dL (28.0-37.0); MCV 89.2 fL (80.0-100.0); MONOCYTES 8.1 % (1.0-8.0); PLATELET COUNT 146 thou/uL (150-400); POLYS 82.8 % (36.0-66.0); RBC 4.21 mil/uL (4.50-6.00); RDW 13.9 % (10.5-14.5); WBC 17.7 thou/uL (4.0-11.0)
[2018-10-07 04:30] LABS: HEMOGLOBIN 12.6 gm/dL (14.0-18.0)
--- NOTE | 2018-10-07 05:46 | NUR ---
ASSUMED CARE OF PT AT 1900HRS. PT AOX4 AND LETS NEEDS BE KNOWN. FALL PRECAUTION IN PLACE. PT REPORTED SOME PAIN AND WAS MEDICATED. PT WAS ABLE TO SLEEP PART OF THE SHIFT. VSS AND NO S/S OFF ACUTE DISTRESS. WILL CONTINUE TO MONITOR.
[2018-10-07 07:22] VITALS: BP 118/74
--- NOTE | 2018-10-07 15:53 | NUR ---
Assumed pt care this am, pt had expressed his pain si so much better today and rated it as a 2 and did not want any medication. Nausea and vomiting were noted 10 am after pt tried to have breakfast, medication given partial relief was noted, another episode was at [address] Parkinson pt to be NPO one hour after the episode before going back to clear liquids. Mucinex ordered, Dr. Parkinson suspects mucus secretions is causing the n & v and suggested the head of the bed be elevated as well. Ice chips given and was well tolerated. GI consults called. POC being followed
[2018-10-07 16:53] VITALS: BP 122/70
[2018-10-07 19:38] VITALS: BP 119/65
[2018-10-08 04:18] VITALS: BP 92/51
--- NOTE | 2018-10-08 05:42 | NUR ---
Pt. rested quietly at intervals during the night when checked on during frequent rounds. He c/o back pain and pain meds given (see emar) with some relief noted. Up to the bathroom with standby assistance. Bed alarm is on. No c/o nausea.
[2018-10-08 06:26] LABS: ALBUMIN 2.5 g/dL (3.4-5.0); CALCIUM 8.4 mg/dL (8.5-10.1); CREATININE 0.8 mg/dL (0.7-1.3); POTASSIUM 3.3 mmol/L (3.5-5.1); TOTAL BILIRUBIN 0.3 mg/dL (<0.1-1.0); TOTAL PROTEIN 5.4 g/dL (6.4-8.2)
[2018-10-08 08:38] VITALS: BP 123/57
--- NOTE | 2018-10-08 08:58 | EKG ---
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
--- NOTE | 2018-10-08 13:17 | NUR ---
PT ADMITTED RELATED TO N/V AND ABD PAIN; WEAKNESS. CM REVIEWED CHART AND SPOKE WITH CARE TEAM. CM MET WITH PT AT BEDSIDE THIS DAY. PT IS A&O X4. CM ROLE INTRODUCED. PT INDICATED HE LIVES ALONE IN AN APARTMENT WITH NO STEPS TO ENTER AND NO STEPS INSIDE. 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 PT INDICATED NO HH HX. PT INDICATED HE PLANS TO RETURN HOME ONCE MEDICALLY STABLE. CM TO FOLLOW INDICATED WITH DC PLANNING.
[2018-10-08 15:23] VITALS: BP 95/55
[2018-10-08 20:15] VITALS: BP 95/57
[2018-10-08 20:26] VITALS: BP 95/57
[2018-10-08 21:05] VITALS: BP 98/60
--- NOTE | 2018-10-08 21:14 | NUR ---
PATIENT ALERT AND ORIENTED AND EATING POORLY DUE TO RESTRICTED DIET. PATIENT ASKED TO CALL FOR HELP BUT FOUND 2 TIMES GETTING OUT OF BED WITHOUT CALLING FOR ASSISTANCE AND BED ALARM WAS SOUNDING. PATIENT STATES HE DOES NOT LIKE THE BED ALARM. PATIENT TO HAVE EGD TOMORROW AND NPO AT MIDNIGHT. RIGHT WRIST PIV MAY NEED TO BE REPLACED. NOTIFIED GUM PULLER IN HANDOFF.
--- NOTE | 2018-10-09 01:54 | NUR ---
ASSUMED CARE OF PT AT 1900HRS. PT EXPERIENCED AN UNWITNESSED FALL IN THE BATHROOM AT 2000HRS. PT WAS AOX4 AT THE TIME. PT THOUGHT HE COULD GET UP ON HIS OWN. NO INJURY OBSERVED OR REPORTED. HOSPITALIST NOTIFIED. NO FAMILY TO NOTIFY PER PT. POST FALL ASSESSMENTS ARE NEGATIVE FOR ACUTE DISTRESS. PT RESTING COMFORTABLY IN BED.
[2018-10-09 03:03] VITALS: BP 141/70
--- NOTE | 2018-10-09 05:21 | NUR ---
ASSUMED CARE OF PT AT 1900HRS. PT AOX4. POST FALL ASSESSMENTS CHARTED. PT PLACED NPO AFTER MN. NO REPORTS OF PAIN OR NAUSEA. FALL PRECAUTION IN PLACE. VSS AND NO S/S OF ACUTE DISTRESS. PT WAS ABLE TO SLEEP PART OF THE SHIFT. WILL CONTINUE TO MONITOR.
[2018-10-09 06:41] LABS: ABSOLUTE RETIC COUNT 0.0333 10^6/uL
[2018-10-09 06:49] LABS: % SATURATION 25 % (20-39); IRON 37 ug/dL (65-175); TIBC 150 ug/dL (250-450)
[2018-10-09 08:00] VITALS: BP 113/62
[2018-10-09 15:14] VITALS: BP 119/65
--- NOTE | 2018-10-09 18:28 | NUR ---
Patient's vital signs have been WNL's, LSCTA, ABD soft et non-tender, BS x's 4, skin is clean, warm, dry et intact. Patient has complained of partially relieved pain throughout this shift. He was last given Morphine 2mg IV push just prior to 1700 for "level eight back pain"; this reduced his pain to a level "three." Patient is also on scheduled Methadone. He did some walking in the hallway with PT today although he did not want to do so (he agreed to do so after education per nurse). Will continue to monitor.
[2018-10-09 18:57] VITALS: BP 141/63
--- NOTE | 2018-10-10 02:01 | NUR ---
ASSUMED CARE AROUND 1900. AXOX4. NO S/S ACUTE DISTRESS NOTED OR REPORTED AT THIS TIME. WILL CONT TO MONITOR FOR ANY CHANGES IN CONDITION.
[2018-10-10 03:32] VITALS: BP 93/58
[2018-10-10 07:20] VITALS: BP 103/63
--- NOTE | 2018-10-10 10:22 | P ---
[facility] [place] [address] PROCEDURE REPORT Name: RUDI HOOKS Antwon Room #: 458-P [facility] IN M.R.#: [id number] Admission: 10/05/18 Attend Phys: Rolando Cadet MD Discharge: Date of : 40 Report #: [id number] THIS REPORT FOR: //name// CC: Rolando Samuels DO DATE OF SERVICE: 10/09/2018 PROCEDURE: Esophagogastroduodenoscopy with biopsy. PATIENT OF: Dr. Cb Samuels and Dr. Rolando Cadet. INDICATION FOR PROCEDURE: This patient has had nausea, vomiting, abdominal pain, and unexpected and unexplained 10-pound weight loss. He has a history of duodenal strictures. He has had worsening gastroesophageal reflux symptoms and now he has developed dysphagia to solids. Informed consent for this procedure was obtained prior to the administration of any medication. The risks of the procedure, which include bleeding, perforation, infection, complications of sedation and the possibility I could miss something just to name a few possibilities have been explained to the patient and he has indicated his consent by signing. Propofol was slowly titrated before and during this procedure for patient comfort by the Anesthesia Service. DESCRIPTION OF PROCEDURE: With the patient in the left lateral decubitus position and bite block in place, the Olympus upper videoscope was introduced through the upper esophageal sphincter and advanced under direct visualization to the third portion of the duodenum. Findings are noted on withdrawal of the scope. The third portion of the duodenum appears normal as does the second portion. In the distal duodenal bulb, there is a strictured deeply ulcerated duodenal narrowing. The scope can pass through this; however, I doubt that food can get through here very easily and this probably accounts for the patient's nausea, vomiting, weight loss and worsening gastroesophageal reflux symptoms. The duodenal bulb itself appears less inflamed than the strictured post-bulbar area. Pylorus and the prepyloric area, there is a nonbleeding white based prepyloric ulcer. This was irregular in appearance and approximately 1.5 cm in length. The antrum itself is erythematous as is the body and the cardia and the fundus of the stomach. Biopsies were obtained from the antrum and from the proximal body of the stomach for histopathology to evaluate for possible H. pylori infection. There were no bleeding lesions seen in the upper GI tract. The scope was withdrawn into the esophagus. There appears to be a possible short segment of Daley's ectopic mucosa in the distal 1 or 2 cm of the [address] [address] PROCEDURE REPORT Name: RAYRAYPAYTONRUDI C Room #: 458-P [facility] IN [facility].#: [id number] Admission: 10/05/18 Attend Phys: Rolando Cadet MD Discharge: Date of : 40 Report #: [id number] esophagus. Above this level, the esophagus was circumferentially and severely ulcerated with white exudate throughout the esophagus extending from 21 cm down to 38 cm from the incisors. The more proximal esophageal mucosa appears normal. The scope was withdrawn. The patient went to the recovery area in stable condition. He tolerated the procedure well. IMPRESSION: 1. Severely ulcerated postbulbar duodenal stricture; the scope passes through, but I doubt food can pass easily through this and this probably accounts for some of his other symptomatology. 2. Prepyloric white based nonbleeding ulceration size 1.5 cm. 3. Diffuse gastric erythema. 4. Severely ulcerated esophagus extending from 21-38 cm from the incisors. My recommendations are as follows: I would recommend he double his proton pump inhibitor dose. He needs to stay on full liquids for now as it is not appropriate to attempt dilatation of a severely ulcerated duodenal stricture for fear of perforation. My recommendations would be for him to have a followup EGD in approximately 2 weeks. In the interim, he should stay on very soft diet consisting primarily of Ensure and full liquids as these will probably make it through the stricture with less difficulty than more solid difficult to digest foods. He should be on Protonix 40 mg p.o. b.i.d. for at least the next 3 months. He needs a followup EGD in approximately 12 weeks to assess ulcer healing and to determine if he does have Daley's ectopic mucosa present. We are awaiting the biopsy results. Thank you very much once again for allowing me to participate in his care. <ELECTRONICALLY SIGNED> By: Yenifer Abbott DO 10/10/18 1022 1250 0039 Yenifer Abbott DO /nt
[2018-10-10] MEDS ORDERED: PANTOPRAZOLE SO40 M1 PO (14:59)
[2018-10-10] MEDS ORDERED: METRONIDAZOLE500 M4 PO (15:00)
[2018-10-10 15:09] VITALS: BP 109/49
[2018-10-10 16:22] VITALS: BP 109/49
--- NOTE | 2018-10-10 17:06 | PATH ---
[facility] [address] [place] [address] PATHOLOGY RPT PROCEDURE Name: RAYRAYPAYTONMUSHTAQ C Room #: 458-P [facility] IN M.R.#: [id number] Admission: 10/05/18 Date of : 40 Discharge: Report #: [id number] Path Case #: [id number] [facility] Accession Number: [id number] . 01 Material submitted: . stomach - BX GASTRITIS . 01 Clinical history: . Pre-OP DX: Dysphagia, nausea with vomiting Post-OP DX: Ulcerative esophagitis 21 cm-38 cm, gastric ulcers, duodenal stricture with ulcers . 02 Diagnosis: Gastric mucosa, gastritis rule out H. pylori, endoscopic biopsy: - Mild reactive gastropathy. - Negative for intestinal metaplasia or atrophy. - Negative for Helicobacter pylori (properly controlled immunohistochemical stain performed). (IUV:avery; 10/10/2018) MONICA/10/10/2018 . 02 Electronically signed: . Kristel Medeiros MD, Pathologist NPI- [id number] . 01 Gross description: . Received in formalin labeled "Mushtaq Beck, BX gastritis, rule out H. pylori," are 2 segments of ny soft tissue measuring 0.6 x 0.2 x 0.1 cm in aggregate dimensions and ranging from 0.2 to 0.4 cm in maximum dimension. The specimen is submitted entirely in cassette A1. (TSD; 10/09/2018) TOB/TOB . 02 Pathologist provided ICD-10: K31.9 . 02 CPT . 177670, L09978 Specimen Comment: A courtesy copy of this report has been sent to Specimen Comment: [phone], , . Specimen Comment: Report sent to ,DR VALENTINE / DR LING Performed at: [address] [id number] MD Marcellus Pope MD Phone: [phone] Performed at: 02 [place] [address] PATHOLOGY RPT PROCEDURE Name: MUSHTAQ BECK Room #: 458-P [facility] IN M.R.#: [id number] Admission: 10/05/18 Date of : 40 Discharge: Report #: [id number] Path Case #: [id number] [address] [facility], [place], [place] [id number] MD Kristel Medeiros MD Phone: [phone]
--- NOTE | 2018-10-10 20:19 | NUR ---
ASSUMED CARE OF PATIENT AT 0715, PATIENT ALERT AND ORIENTED X 4. UP WITH ASSIST X 1. FALL PRECAUTIONS IN PLACE, PATIENT INSTRUCTED TO CALL FOR ASSISTANCE. PATIENT HAD LEFT FOREARM IV IN PLACE WITH IV FLUIDS AT 80CC/HR. PATIENT HAD CHRONIC BACK PAIN, SCHEDLUED METHADONE GIVEN ORDERED. PATIENT ALSO RECEIVED IV ANTIBIOTICS SCHEDULED. DR MOSS HERE THIS AFTERNOON AND ORDER RECEID TO DISCHARGE PATIENT TO HOME, ALL DISCHARGE PAPERWORK AND ALL PERSONAL BELONGINGS SENT WITH THE PATIENT. CAB V[employer]ER NEEDED FOR TRANSPORT TO HOME. LEFT FOREARM IV REMOVED PRIOR TO DISCHARGE. PATIENT TAKEN TO SECURITY TO CALL FOR CAN BY [facility].
== END 2018-10-10 20:31 | disposition home or self-care (01) | DRG 871 ==
LOC: ER 15:02 → EROBS 18:09 → 4W 18:09 → ENTRNSPT 10-10 18:17 → 4W 10-10 20:31
PROVIDERS: Internal Medicine; Nurse Practitioner Family; ADMIT Hospitalist
PROC: 0DB78ZX Excision of Stomach, Pylorus, Via Natural or Artificial Opening Endoscopic, Diagnostic (ICD-10-PCS; principal; 2018-10-09)
DX: A41.9 Sepsis, unspecified organism (principal); N17.0 Acute kidney failure with tubular necrosis; K22.10 Ulcer of esophagus without bleeding; K31.5 Obstruction of duodenum; E86.0 Dehydration; E16.2 Hypoglycemia, unspecified; K26.9 Duodenal ulcer, unspecified as acute or chronic, without hemorrhage or perforation; F32.9 Major depressive disorder, single episode, unspecified; F41.9 Anxiety disorder, unspecified; M54.5 Low back pain; K52.89 Other specified noninfective gastroenteritis and colitis; J44.9 Chronic obstructive pulmonary disease, unspecified; M54.9 Dorsalgia, unspecified; F17.290 Nicotine dependence, other tobacco product, uncomplicated; G47.33 Obstructive sleep apnea (adult) (pediatric); Z96.611 Presence of right artificial shoulder joint; G89.4 Chronic pain syndrome; E87.6 Hypokalemia; M19.90 Unspecified osteoarthritis, unspecified site; K59.00 Constipation, unspecified; Z60.2 Problems related to living alone; D50.9 Iron deficiency anemia, unspecified; R13.10 Dysphagia, unspecified; K29.70 Gastritis, unspecified, without bleeding; K25.9 Gastric ulcer, unspecified as acute or chronic, without hemorrhage or perforation; Z88.0 Allergy status to penicillin; Z79.1 Long term (current) use of non-steroidal anti-inflammatories (NSAID); Z87.11 Personal history of peptic ulcer disease; Z86.718 Personal history of other venous thrombosis and embolism; K52.9 Noninfective gastroenteritis and colitis, unspecified
CPT/HCPCS: 10040; 10045; 62110; 62900; 70005

== ENCOUNTER → 2018-12-13 | Outpatient (CLI) | payer OTHER, MEDICARE ==
[~2018-12-13] VITALS: Ht 167.6 cm; Wt 64.0 kg
[~2018-12-13] MED LIST changes: +LATANOPROST 0.7.5 ML OPHTHALMIC; +METRONIDAZOLE500 M4 PO; +PROTONIX40 M2 PO
[2018-12-13 14:49] VITALS: BP 136/78
--- NOTE | 2018-12-13 14:55 | NUR ---
Pain Clinic Assessment: 1. History of Osteoarthritis: BACK History of Rheumatoid Arthritis: Not Applicable 2. Height: 5 ft. 6 in. 167.6 cm. Weight: 141.0 lb. oz. 63.957 kg. Patient's BMI: 22.8 3. Vital Signs: BP: 136/78 Pulse: 77 Resp: 18 Temp: 02 Sat: 97 ECG Mon: 4. Pain Intensity: 3 5. Fall Risk: Dizziness: N Needs help standing or walking: N Fallen in the last 3 months: N Fall risk comments: 6. Patient on Blood Thinner: None 7. History of Hypertension: Y 8. Opioid Therapy greater than 6 weeks: Y Opiate Contract Signed: 02/01/16 9. Risk Assessment Tool Provided: BEAU 10. Functional Assessment Tool: 11. Recreational Drug Use: Never Drug Type: Tobacco Use: Light Tobacco Smoker Tobacco Type: Pipe Tobacco Amount or Packs/day: How Many Years: Alcohol Use: No Frequency: Quant:
--- NOTE | 2018-12-31 09:25 | HPC ---
[facility] [address] [place] [address] PAIN MANAGEMENT CONSULTATION Name: RAYRAYPAYTONRUDI C Room #: REG DEVON Simón#: [id number] Admission: 12/13/18 Attend Phys: Lizzeth Tapia MD Discharge: Date of : 40 Report #: [id number] THIS REPORT FOR: //name// CC: Cb Tapia DATE OF SERVICE: 12/13/2018 CHIEF COMPLAINT: Here for medication renewal. HISTORY: The patient is a 78-year-old gentleman who has been followed in the pain clinic because of chronic pain. He has been hospitalized. He had severe problems with ulcers. He has lost a total of 20 pounds. He continues to have pain in his low back, pain in his neck and some pain and discomfort in the area of his shoulders. Describes the discomfort as sharp, throbbing and aching. Rates it as a 3/10 today. He has continued to note improvement with use of his medications. He finds rest and sitting are beneficial. Pain is exacerbated with activities of daily living. Overall, his pain medications have been helpful. They have not caused any problems with his sensorium. He is able to think clearly. He would like to continue with his medication and has returned today for a renewal. ALLERGIES: PENICILLIN. CURRENT MEDICATIONS: Wellbutrin-SR 150 mg, hydrocodone/acetaminophen 10/325 one p.o. t.i.d., methadone 10 mg 1 tablet at bedtime, pantoprazole 40 mg b.i.d., ProAir 1 puff p.r.n., Flexeril 5 mg 1 p.o. t.i.d. muscle spasms, omeprazole 40 mg with meals, alprazolam 0.5 mg t.i.d., iron 325 mg b.i.d., gabapentin 300 mg, 1 p.o. t.i.d. PHYSICAL EXAMINATION: GENERAL: The patient is a well-developed, somewhat cachectic appearing white male. Appears his stated age. He is alert and oriented x 3. His affect is appropriate. Speech is fluent. HEENT: Normocephalic, atraumatic. Extraocular eye muscles intact. NECK: Without adenopathy or masses. LUNGS: Generally clear to auscultation. HEART: Regular rate. ABDOMEN: Scaphoid. MUSCULOSKELETAL: The patient without significant scoliosis, he is somewhat kyphotic. Walks with a forward bend and has been using a cane. Does have some complaint of pain and discomfort down his left foot. PAIN CLINIC ASSESSMENT: The patient is not being treated for osteoarthritis or rheumatoid arthritis. The patient has some complaint of pain in his back. Height 5 feet 6 inches, weight 141 pounds, [place] 22[place] [address] PAIN MANAGEMENT CONSULTATION Name: RAYRAYPAYTONRUDI Room #: REG [facility]#: [id number] Admission: 12/13/18 Attend Phys: Lizzeth Tapia MD Discharge: Date of : 40 Report #: [id number] 1. Vital signs: Blood pressure 136/78, pulse 77, respiratory rate 18, room air saturation 97%. 2. Pain intensity 04/14. 3. Fall history: The patient has not fallen in the last 3 months. 4. Blood thinner. The patient is not on a blood thinning medication. 5. Hypertension. The patient is being treated for hypertension. 6. Opioids. The patient receives his medication from one source, the pain clinic. 7. Risk assessment tool, low for opioid use. 8. Functional assessment tool, 56/70. 9. Recreational drug use: The patient denies. 10. Tobacco: The patient smokes a pipe. 11. Alcohol: The patient denies frequent use of alcoholic beverages. PHYSICAL EXAMINATION: That has already been stated. IMPRESSION: 1. Chronic pain involving the low back, hips, and neck area. 2. History of gastroesophageal problems with reflux. 3. History of ulcers. 4. History of chronic anemia. RECOMMENDATIONS: We discussed treatment options with the patient. At this juncture, he feels his medications are helpful. He is aware that opioid medications can become less effective over time. Feels that these medications enable him to engage in activities he would not be able to without their use. He does not have any problems with his thinking ability. He is not showing signs of addiction. The patient will continue with his medications. A script for his medications has been rewritten. He will continue with methadone 10 mg 1 tablet in the morning and one-half tablet midday and one tablet at bedtime. He will also call us if he has any concerns. We would like to thank you for letting us participate in his care. We hope he continues to improve. <ELECTRONICALLY SIGNED> By: Lizzeth Tapia MD 12/31/18 0925 0823 2324 Lizzeth Tapia MD /geovany
== END ==
LOC: PAIN 06:56
DX: G89.29 Other chronic pain (principal); K21.9 Gastro-esophageal reflux disease without esophagitis; D64.9 Anemia, unspecified

== ENCOUNTER → 2019-04-09 | Outpatient (CLI) | payer OTHER, MEDICARE ==
[~2019-04-09] VITALS: Ht 167.6 cm; Wt 65.4 kg
[~2019-04-09] MED LIST changes: +NARCAN4 MG NARES
[2019-04-09 10:44] VITALS: BP 141/92
--- NOTE | 2019-04-09 10:48 | NUR ---
Pain Clinic Assessment: 1. History of Osteoarthritis: BACK History of Rheumatoid Arthritis: Not Applicable 2. Height: 5 ft. 6 in. 167.6 cm. Weight: 144.2 lb. oz. 65.409 kg. Patient's BMI: 23.3 3. Vital Signs: BP: 141/92 Pulse: 87 Resp: 18 Temp: 02 Sat: 97 ECG Mon: 4. Pain Intensity: 8 5. Fall Risk: Dizziness: N Needs help standing or walking: Y Fallen in the last 3 months: Y Fall risk comments: 6. Patient on Blood Thinner: None 7. History of Hypertension: Y 8. Opioid Therapy greater than 6 weeks: Y Opiate Contract Signed: 02/01/16 9. Risk Assessment Tool Provided: BEAU 10. Functional Assessment Tool: 11. Recreational Drug Use: Never Drug Type: Tobacco Use: Light Tobacco Smoker Tobacco Type: Amount or Packs/day: How Many Years: Alcohol Use: No Frequency: Quant:
--- NOTE | 2019-04-14 22:53 | HPC ---
[facility] [place] [place] [address] PAIN MANAGEMENT CONSULTATION Name: RUDI HOOKS Room #: REG GLORIA PatinoAna#: [id number] Admission: 04/09/19 Attend Phys: Lizzeth Tapia MD Discharge: Date of : 40 Report #: [id number] THIS REPORT FOR: cc: Cb Samuels,Lizzeth Pina MD ~ CC: Cb Tapia DATE OF SERVICE: 04/09/2019 CHIEF COMPLAINT: Still having left shoulder pain as well as back and GI pain. HISTORY: The patient is a 78-year-old gentleman who has been followed in the pain clinic because of chronic pain. He has history of GI problems. He has had ulcers. He states that he does produce excessive amount of acid. He finds that if he eats at certain times that decreases the GI discomfort. He continues to have pain and discomfort in the neck. Has pain between his shoulder blades. He notes that the pain is throbbing, sharp, and aching in character. Notes that medications, rest and sitting can decrease his pain and discomfort. He is not active as he would like to be. His current condition and physical pain limits his activity. He has returned today to renew his medications. He feels that he is thinking clearly with his medications. They definitely help to increase his activity with less pain and discomfort. He did fall on his left side in January. Still has some left-sided chest pain. He states that he did not fracture a rib. States that his GI symptomatology is "up and down" depending on the day. ALLERGIES: PENICILLIN. CURRENT MEDICATIONS: Wellbutrin-SR 150 mg, hydrocodone 10/325 one p.o. t.i.d., methadone 10 mg 1 p.o. at bedtime, one half tablet midday, 1 tablet a.m. Pantoprazole 40 mg b.i.d., ProAir 1 puff p.r.n., Flexeril 5 mg t.i.d. - muscle spasms, omeprazole 40 mg, alprazolam 0.5 mg t.i.d., iron 325 mg b.i.d., gabapentin 300 mg 1 p.o. t.i.d. PAIN CLINIC ASSESSMENT AND PQRS: 1. 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 Does have chronic back pain. Has some left shoulder pain and rotator cuff discomfort. 2. Height 5 feet 6 inches, weight 144 pounds, BMI is 23. 3. Vital signs: Blood pressure 141/92, pulse 87, respiratory rate 18, room air saturation 97%. 4. Pain intensity 8/10. 5. Fall history: The patient has not fallen since January. 6. Blood thinner. The patient is not on a blood thinning medication. 7. Hypertension. The patient is not being treated for hypertension. [address] [address] PAIN MANAGEMENT CONSULTATION Name: RUDI HOOKS [id number] Admission: 04/09/19 Attend Phys: Lizzeth Tapia MD Discharge: Date of : 40 Report #: [id number] 8. Opioids greater than 6 weeks. The patient is receiving medication from one source, pain clinic. 9. Risk assessment tool, 56/70. 10. Recreational drug use: The patient denies. 11. Tobacco: The patient does smoke a pipe. 12. Alcohol. The patient denies use of alcoholic beverages. PHYSICAL EXAMINATION: GENERAL: The patient is a well-developed, well-nourished, somewhat thin and cachectic appearing white male. Appears his stated age. He is alert and oriented x 3. His affect is appropriate. Speech is fluent. HEENT: Normocephalic, atraumatic. Extraocular eye muscles intact. Sclerae nonicteric. Mucous membranes moist. NECK: Without adenopathy. Has pain and discomfort between the shoulder blades. LUNGS: Generally decreased breath sounds. HEART: Regular rate. ABDOMEN: Scaphoid. The patient does note some tenderness in this area. MUSCULOSKELETAL: The patient without significant scoliosis. Walks with a forward bend and uses a cane. IMPRESSION: 1. Chronic pain involving the low back, hips, and neck area. 2. History of gastroesophageal problems with reflux. 3. History of ulcers. 4. History of chronic anemia. RECOMMENDATIONS: We discussed treatment options with the patient. At this juncture, we will continue with the patient's medications. He feels that the hydrocodone medications continue to be helpful. He feels that the methadone medication is helpful. He has taken the medication as prescribed. He is not having any problems with his sensorium. He feels that things are clear. He feels that these medications do provide benefit. He has taken the medication as prescribed. He is not showing signs of addiction. We will provide the patient with Narcan 4 mg. We explained to him the reason for this. Should he have some problems with respiratory problems. This medication can be helpful and reverse the effects of opioids. We explained to the patient that if the family member were to get some of his medications and show signs of problems. He could use this medication to try to reverse any respiratory problems associated with that. He feels his medications are kept in a guarded area that is not going to be a problem, but we explained to him the reason for this. [facility] [address] [place] [address] PAIN MANAGEMENT CONSULTATION Name: RUDI HOOKS Room #: REG [facility].#: [id number] Admission: 04/09/19 Attend Phys: Lizzeth Tapia MD Discharge: Date of : 40 Report #: [id number] We would like to thank you for letting us participate in his care. We hope he continues to improve. <ELECTRONICALLY SIGNED> By: Lizzeth Tapia MD 04/14/19 2253 1121 29 Lizzeth Tapia MD /nt
== END ==
LOC: PAIN 04-02 06:42
DX: M54.5 Low back pain (principal); M25.512 Pain in left shoulder; R10.9 Unspecified abdominal pain; M25.551 Pain in right hip; M25.552 Pain in left hip; M54.2 Cervicalgia; K21.9 Gastro-esophageal reflux disease without esophagitis; Z88.0 Allergy status to penicillin; Z79.899 Other long term (current) drug therapy; Z87.11 Personal history of peptic ulcer disease; Z86.2 Personal history of diseases of the blood and blood-forming organs and certain disorders involving the immune mechanism

== ENCOUNTER 2019-07-31 23:52 | Emergency (ER) | payer OTHER, MEDICARE ==
[~2019-07-31] VITALS: Ht 175.3 cm; Wt 62.7 kg
--- NOTE | ~2019-07-31 | EMS ---
[address] [address] EMS Patient Care Report Name: RUDI HOOKS Room #: DEP CELENA Gr#: [id number] Admission: 07/31/19 Attend Phys: Discharge: 08/01/19 Date of : 40 Report #: [id number] THIS REPORT FOR: //name// Report Transmitted: 08/01/2019 01:23 EMS Care Summary [facility] MED-ACT Incident [id number] @ 07/31/2019 23:23 Incident Location [address] [place] [address] Patient RUDI HOOKS Male, 79 Years 1940 Patient Address [address] [place] [address] Patient History Back Pain (Chronic), Patient Allergies Penicillin allergy, Patient Medications Hydrocodone, Chief Complaint back pain for a week Disposition Transported No Lights/[place] Dispatch Reason Back Pain (Non-Traumatic) Transported To [facility] Narrative M1141 dispatched emergent to C1 back pain. Upon arrival pt states he has had back marin chronically since 2000. Pt states the pain is normally in his lower [address] [address] EMS Patient Care Report Name: RUDI HOOKS Room #: DEP [facility]#: [id number] Admission: 07/31/19 Attend Phys: Discharge: 08/01/19 Date of : 40 Report #: [id number] back but over the last week the pain has been in his upper back by his left shoulder blade. Pt denies radiation. Pt states the pain is constant and sharp. Pt states his normal pain is a 3-5 out of 10 but recently his pain has been an 8-9 out of 10. Pt states he has been out of his pain medicine for a week. Pt denies recent injury to his back. Pt denies any diagnosis for injuries to his back. Pt denies any other complaints. Pt assessment performed. Pt assisted to cot. Pt moved to ambulance. Vital signs assessed. Biocom to [place] performed. Pt report given to RN. Pt care transferred to [place] without incident. [id number] cleared call. Initial Vitals @23:37P: 97,R: 16,BP: 149/106,Pain: 8/10,GCS: 15,SpO2: 96,Revised Trauma: 12, @23:43P: 77,R: 16,BP: 191/108,Pain: 8/10,GCS: 15,SpO2: 95,Revised Trauma: 12, @23:41P: 80,R: 16,BP: 156/112,Pain: 8/10,GCS: 15,SpO2: 97,Revised Trauma: 12, Assessments @23:33MENTAL:Person Oriented,Time Oriented,Place Oriented,Event Oriented,SKIN:HEENT:Eyes: Left Pupil: 4-mm,Eyes: Right Pupil: 4-mm,LUNG SOUNDS:General: No Abnormalities,ABDOMEN:General: No Abnormalities,PELVIS//GI:EXTREMITIES:Left Arm: No Abnormalities,Right Arm: No Abnormalities,Left Leg: No Abnormalities,Right Leg: No Abnormalities,PULSE:Radial: 2+ Normal,NEURO:No Abnormalities, Impression Back Pain Timeline 23:21,Call Received 23:21,Psap Call 23:23,Dispatched 23:24,En Route 23:30,On Scene 23:32,At Patient 23:37,BP: 149/106 M,PULSE: 97,RR: 16 R,SPO2: 96 Ox,ETCO2: ,BG: ,PAIN: 8,GCS: 15, 23:37,Depart Scene 23:41,BP: 156/112 M,PULSE: 80,RR: 16 R,SPO2: 97 Ox,ETCO2: ,BG: ,PAIN: 8,GCS: 15, 23:43,BP: 191/108 M,PULSE: 77,RR: 16 R,SPO2: 95 Ox,ETCO2: ,BG: ,PAIN: 8,GCS: 15, 23:48,At Destination 23:58,Call Closed Disclaimer [facility] [address] [place] [address] EMS Patient Care Report Name: URDI HOOKS Room #: DEP [facility]#: [id number] Admission: 07/31/19 Attend Phys: Discharge: 08/01/19 Date of : 40 Report #: [id number] v1.1 Copyright 2020 [employer] This EMS Care Summary contains data elements from the applicable legal record (which may be displayed differently). It is designed to provide pertinent information for the following purposes: continuity of care, clinical quality, and state data reporting. The complete legal record is available to ED staff and administrators of the receiving hospital in ES's Patient Tracker. All data is provided "as is."
[2019-07-31 23:57] VITALS: BP 192/104
[2019-08-01] MEDS ORDERED: NORCO 10-325 T1 EACH PO (00:57)
[2019-08-01] MEDS ORDERED: METHOCARBAMOL500 M2 PO (03:56)
[2019-08-04] MEDS ORDERED: FEROSUL325 M1 PO (10:50)
[2019-08-04] MEDS ORDERED: METHADONE HCL 110 M1 PO (10:50)
[2019-08-04] MEDS ORDERED: CYMBALTA60 MG PO (10:50)
[2019-08-04] MEDS ORDERED: PROTONIX40 M2 PO (10:50)
[2019-08-04] MEDS ORDERED: HYDROCODON-ACE1 EAC5 PO (10:50)
[2019-08-04] MEDS ORDERED: NEURONTIN300 MG PO (10:50)
[2019-08-04] MEDS ORDERED: XANAX 0.5 MG0.5 MG PO (10:50)
[2019-08-04] MEDS ORDERED: WELLBUTRIN SR150 MG PO (10:50)
== END 2019-08-01 01:37 | disposition home or self-care (01) ==
LOC: ER 23:52
DX: M62.830 Muscle spasm of back (principal); M41.86 Other forms of scoliosis, lumbar region; J44.9 Chronic obstructive pulmonary disease, unspecified; G89.29 Other chronic pain; F17.210 Nicotine dependence, cigarettes, uncomplicated; Z88.0 Allergy status to penicillin; Z79.899 Other long term (current) drug therapy; Z98.890 Other specified postprocedural states

== ENCOUNTER 2019-08-03 15:10 | Emergency (ER) | payer OTHER, MEDICARE ==
[~2019-08-03] VITALS: Ht 175.3 cm; Wt 67.1 kg
--- NOTE | ~2019-08-03 | EMS ---
[address] [address] EMS Patient Care Report Name: RUDI HOOKS Room #: REG CELENA Gr#: [id number] Admission: 08/03/19 Attend Phys: Discharge: Date of : 40 Report #: [id number] THIS REPORT FOR: //name// Report Transmitted: 08/03/2019 16:02 EMS Care Summary [facility] MED-ACT Incident [id number] @ 08/03/2019 14:31 Incident Location [address] [place] [address] Patient RUDI HOOKS Male, 79 Years 1940 Patient Address [address] [place] [address] Patient History Back Pain (Chronic), Patient Allergies Penicillin allergy, Patient Medications Hydrocodone, Chief Complaint Back pain Disposition Transported No Lights/[place] Dispatch Reason Unconscious/Fainting Transported To [facility] Narrative Pt found walking through his living room out to meet the EMS and FD crews at the door. Pt states "I have 8/10 sharp burning chronic back pain that is in [address] [address] EMS Patient Care Report Name: RUDI HOOKS Room #: REG Simón#: [id number] Admission: 08/03/19 Attend Phys: Discharge: Date of : 40 Report #: [id number] between my shoulder blades. I have had the pain for about 2 months with no real relief. I have been seeing a doctor [facility] and also seeing the ER physician on occasion. I went to the ER 2 days ago where I was prescribed pain medication and muscle relaxers. I have been taking the medication like I was suppose to and have had no relief." Pt denies any new trauma to the area. Pt stated that he was nauseous and vomited yesterday but has not eaten anything today. Pt stated that he could use some help bathing at home since the back pain started it has been very difficult to accomplish. Pt was assisted to the ambulance cot, covered with a sheet and secured with seat belts. Pt was moved to the ambulance without incident. Pt was transported to [facility] in position of comfort and was able to rest during transport. 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 Pt was delivered to ER bed 1 with from his physical appearance a reduction in pain. Pt was 3 person sheet lifted to the hospital bed and secured with locked side rails in the upright position. EMS gave report to receiving RN transferring care and pt to hospital staff. Initial Vitals @14:45P: 116,SpO2: 95,[place] Suspected: false @14:49P: 113,SpO2: 96,[place] Suspected: false @14:56P: 106,BP: 107/63,SpO2: 94, @14:44P: 115,R: 18,BP: 124/87,Pain: 8/10,GCS: 15,SpO2: 96,Revised Trauma: 12, @15:02P: 103,R: 18,BP: 92/66,Pain: 8/10,GCS: 15,SpO2: 94,Revised Trauma: 12, Assessments @14:56MENTAL:Person Oriented,Time Oriented,Event Oriented,Place Oriented,SKIN:HEENT:Eyes: Left Pupil: 3-mm,Eyes: Right Pupil: 3-mm,Head/Face: No Abnormalities,Neck/Airway: No Abnormalities,LUNG SOUNDS:General: No Abnormalities,ABDOMEN:General: No Abnormalities,PELVIS//GI:EXTREMITIES:Left Arm: No Abnormalities,Right Arm: No Abnormalities,Left Leg: No Abnormalities,Right Leg: No Abnormalities,PULSE:Radial: 2+ Normal,NEURO: Impression Back Pain Procedures @14:4912-Lead ECGResponse: UnchangedSucceeded@14:453-Lead ECGResponse: UnchangedSucceeded Timeline 14:29,Call Received 14:29,Psap Call 14:31,Dispatched 14:32,En Route 14:37,On Scene [facility] [address] [place] [address] EMS Patient Care Report Name: RUDI HOOKS Antwon Room #: [facility]#: [id number] Admission: 08/03/19 Attend Phys: Discharge: Date of : 40 Report #: [id number] 14:39,At Patient 14:44,BP: 124/87 M,PULSE: 115,RR: 18 R,SPO2: 96 Ox,ETCO2: ,BG: ,PAIN: 8,GCS: 15, 14:45,3-Lead ECG,Response: UnchangedSucceeded, 14:45,BP: / M,PULSE: 116,RR: R,SPO2: 95 Ox,ETCO2: ,BG: ,PAIN: ,GCS: , 14:49,12-Lead ECG,Response: UnchangedSucceeded, 14:49,BP: / M,PULSE: 113,RR: R,SPO2: 96 Ox,ETCO2: ,BG: ,PAIN: ,GCS: , 14:50,Depart Scene 14:56,BP: 107/63 M,PULSE: 106,RR: R,SPO2: 94 Ox,ETCO2: ,BG: ,PAIN: ,GCS: , 15:02,BP: 92/66 M,PULSE: 103,RR: 18 R,SPO2: 94 Ox,ETCO2: ,BG: ,PAIN: 8,GCS: 15, 15:03,At Destination 15:27,Call Closed Disclaimer v1.1 Copyright 2020 [employer] This EMS Care Summary contains data elements from the applicable legal record (which may be displayed differently). It is designed to provide pertinent information for the following purposes: continuity of care, clinical quality, and state data reporting. The complete legal record is available to ED staff and administrators of the receiving hospital in [employer]'s Patient Tracker. All data is provided "as is."
[~2019-08-03 15:10] MED LIST changes: +METHOCARBAMOL500 M2 PO
[2019-08-03 15:55] LABS: ABSOLUTE NEUTROPHILS 8.2 thou/uL (1.4-8.2); BASOPHILS 0.9 % (0.0-2.0); EOSINOPHILS 0.4 % (0.0-3.0); HEMATOCRIT 46.7 % (42.0-52.0); HEMOGLOBIN 15.9 gm/dL (14.0-18.0); MCH 30.1 pg (26.0-34.0); MCV 88.4 fL (80.0-100.0); MONOCYTES 7.5 % (1.0-8.0); PLATELET COUNT 212 thou/uL (150-400); POLYS 72.2 % (36.0-66.0); RBC 5.28 mil/uL (4.50-6.00); RDW 14.6 % (10.5-14.5); WBC 11.3 thou/uL (4.0-11.0)
[2019-08-03 16:01] LABS: ANION GAP 10 mmol/L (7-16); BUN 39 mg/dL (7-18); CHLORIDE 98 mmol/L (98-107); CO2 27 mmol/L (21-32); CREATININE 1.3 mg/dL (0.7-1.3); GLUCOSE 96 mg/dL (74-106); POTASSIUM 3.5 mmol/L (3.5-5.1); SODIUM 135 mmol/L (136-145)
[2019-08-03 16:12] LABS: ALBUMIN 3.5 g/dL (3.4-5.0); SGOT 21 U/L (15-37); SGPT 19 U/L (30-65); TOTAL BILIRUBIN 0.8 mg/dL (0.2-1.0); TROPONIN-I <0.06 ng/mL (<0.06)
[2019-08-03] MEDS ORDERED: NORCO 10-325 T1 EACH PO (17:06)
[2019-08-03] MEDS ORDERED: LIDOCAINE PAIN1 EACH TRANSDERM (17:07)
[2019-08-03 17:46] VITALS: BP 111/82
--- NOTE | 2019-08-04 07:53 | EKG ---
[facility] [place] [address] ELECTROCARDIOGRAM REPORT Name: RUDI HOOKS Room #: 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: [facility] : 1940 Requested By: Bharti Moon Order Number: [id number] MD: Frandy Stewart Measurements Intervals [place] Rate: 100 P: 83 MI: 154 QRS: 66 QRSD: 81 T: 73 QT: 358 QTc: 462 Interpretive Statements Sinus tachycardia Atrial premature complexes Compared to ECG 10/05/2018 15:39:29 Atrial premature complex(es) now present Ventricular premature complex(es) no longer present ST (T wave) deviation no longer present Electronically Signed On 08-04-2019 7:53:07 CDT by Frandy Stewart [email or web address] <ELECTRONICALLY SIGNED> By: Frandy Stewart MD, [facility] 08/04/19 0753 [id number] 1521 Frandy Stewart MD, FAC /EPI
[2019-08-04] MEDS ORDERED: XANAX 0.5 MG0.5 MG PO (10:50)
[2019-08-04] MEDS ORDERED: FEROSUL325 M1 PO (10:50)
[2019-08-04] MEDS ORDERED: METHADONE HCL 110 M1 PO (10:50)
[2019-08-04] MEDS ORDERED: HYDROCODON-ACE1 EAC5 PO (10:50)
[2019-08-04] MEDS ORDERED: CYMBALTA60 MG PO (10:50)
[2019-08-04] MEDS ORDERED: WELLBUTRIN SR150 MG PO (10:50)
[2019-08-04] MEDS ORDERED: NEURONTIN300 MG PO (10:50)
[2019-08-04] MEDS ORDERED: PROTONIX40 M2 PO (10:50)
== END 2019-08-03 17:48 | disposition home or self-care (01) ==
LOC: ER 15:10
PROVIDERS: Physician Assistant
DX: G89.29 Other chronic pain (principal); M54.5 Low back pain; J44.9 Chronic obstructive pulmonary disease, unspecified; F17.210 Nicotine dependence, cigarettes, uncomplicated; Z79.899 Other long term (current) drug therapy; Z88.0 Allergy status to penicillin

== ENCOUNTER → 2019-08-04 | Outpatient (CLI) | payer OTHER, MEDICARE ==
[~2019-08-04] VITALS: Ht 167.6 cm; Wt 63.0 kg
[~2019-08-04] MED LIST changes: +LIDOCAINE PAIN1 EACH TRANSDERM; +NEURONTIN300 MG PO
[2019-08-04 10:02] VITALS: BP 117/70
--- NOTE | 2019-08-04 10:18 | NUR ---
Pain Clinic Assessment: 1. History of Osteoarthritis: BACK NECK HANDS History of Rheumatoid Arthritis: Not Applicable 2. Height: 5 ft. 6 in. 167.6 cm. Weight: 139.0 lb. oz. 63.050 kg. Patient's BMI: 22.4 3. Vital Signs: BP: 117/70 Pulse: 93 Resp: 14 Temp: 02 Sat: 98 ECG Mon: 4. Pain Intensity: 2-3 5. Fall Risk: Dizziness: N Needs help standing or walking: Y Fallen in the last 3 months: Y Fall risk comments: 6. Patient on Blood Thinner: None 7. History of Hypertension: Y 8. Opioid Therapy greater than 6 weeks: Y Opiate Contract Signed: 02/01/16 9. Risk Assessment Tool Provided: BEAU 10. Functional Assessment Tool: 11. Recreational Drug Use: Never Drug Type: Tobacco Use: Light Tobacco Smoker Tobacco Type: Pipe Tobacco Amount or Packs/day: How Many Years: Alcohol Use: No Frequency: Quant:
--- NOTE | 2019-08-13 15:46 | HPC ---
[facility] [address] [address] PAIN MANAGEMENT CONSULTATION Name: RUDI HOOKS Room #: REG GLORIA PatinoAna#: [id number] Admission: 08/04/19 Attend Phys: Lizzeth Tapia MD Discharge: Date of : 40 Report #: [id number] THIS REPORT FOR: cc: Cb Samuels,Lizzeth Pina MD ~ CC: Cb Jay DATE OF SERVICE: 08/04/2019 CHIEF COMPLAINT: Chronic back pain. HISTORY: A 79-year-old male who has been seen and followed in the pain clinic because of chronic back, neck, and hand pain at this juncture. He was seen in the Emergency Room because of worsening of his upper back pain. He was unsure exactly what caused it. He has not been engaged in physical activity. He rarely leaves his apartment except to go to doctor's appointments. He rates his pain today as a 2-3/10. He states that the pain was quite problematic a day or so ago. It felt like someone was ripping his spine out. He describes it as though a bullet in his back was "being to dig out". He has history of arthritis. Also, has spinal stenosis. He has noticed with his increasing kyphosis that he is shorter than he used to be. He was about 5 feet 9 inches. He is having more problems reaching certain cabinets in his apartment. He has returned today with hopes of having his medications renewed. ALLERGIES: PENICILLIN. CURRENT MEDICATIONS: Methadone 10 mg 1 tablet a.m., one half tablet midday, and one tablet at bedtime; hydrocodone 10/325 one p.o. t.i.d., Protonix 40 mg b.i.d., Cymbalta 60 mg daily, Wellbutrin-SR 150 mg, alprazolam 0.5 mg, iron 325 mg b.i.d., and gabapentin 300 mg t.i.d. PAIN CLINIC ASSESSMENT/PQRS: 1. 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 He does have chronic back pain, some osteoarthritic changes. He has left shoulder pain and rotator cuff discomfort. 2. Height 5 feet 6 inches, weight 130 pounds, BMI is 22.4. 3. Vital signs: Blood pressure 117/70, pulse 93, respiratory rate 14, room air saturation 98%. 4. Pain intensity 2-3/10. 5. Fall history: The patient has not fallen in the last 3 months. 6. Blood thinner. The patient is not on a blood thinning medication. 7. Hypertension. The patient is being treated for hypertension. [address] [address] PAIN MANAGEMENT CONSULTATION Name: RUDI HOOKS [facility] [id number] Admission: 08/04/19 Attend Phys: Lizzeth Tapia MD Discharge: Date of : 40 Report #: [id number] 8. Opioids greater than 6 weeks. The patient received medication from one source the pain clinic. 9. Risk assessment tool, low for opioid use. 10. Functional assessment tool, 55/70. 11. Recreational drug use. The patient denies. 12. Tobacco: The patient smoke pipe. 13. Alcohol. The patient denies frequent use of alcoholic beverages. PHYSICAL EXAMINATION: GENERAL: The patient is a well-developed, well-nourished white male. Appears his stated age. He is alert and oriented x 3. His affect is appropriate. Speech is fluent. HEENT: Normocephalic, atraumatic. Extraocular eye muscles intact. The patient is wearing a mask. NECK: Without adenopathy. The patient has some pain and discomfort between the shoulder blades. LUNGS: Decreased breath sounds. HEART: Regular. ABDOMEN: Scaphoid. The patient has some tenderness in the low back area. MUSCULOSKELETAL: The patient without significant scoliosis. The patient does have kyphosis. He walks leaning forward and uses cane. IMPRESSION: 1. Chronic pain involving the low back area, hips, and neck. 2. History of gastroesophageal problems with reflux. 3. History of ulcers. 4. History of chronic anemia. RECOMMENDATIONS: We discussed treatment options with the patient. At this juncture, we will renew his medications. A script for his medications has been provided. He will continue with methadone 10 mg one p.o. t.i.d. as prescribes. He will also continue hydrocodone 10/325 one p.o. t.i.d. The patient will continue with Xanax 0.5 mg t.i.d. He will take gabapentin t.i.d. He will continue with iron 325 mg b.i.d. He will continue with Wellbutrin. He will also continue with Cymbalta 60 mg q.i.d. A script for Protonix 40 mg b.i.d. has been provided as well. The patient is going to find a new primary care physician. A script for his medications has all been written. He will call us if he has any concerns. We would like to thank you for letting us participate in his care. We hope he continues to improve. <ELECTRONICALLY SIGNED> By: Lizzeth Tapia MD 08/13/19 1546 [id number] [id number] MD SANJUANA Cruz
== END ==
LOC: PAIN 01:24
PROVIDERS: ATTEND Anesthesiology Pain Medicine
DX: M54.5 Low back pain (principal); M54.2 Cervicalgia; G89.29 Other chronic pain; K21.9 Gastro-esophageal reflux disease without esophagitis; L98.499 Non-pressure chronic ulcer of skin of other sites with unspecified severity; D64.9 Anemia, unspecified; Z88.0 Allergy status to penicillin

== ENCOUNTER → 2019-10-03 | Outpatient (CLI) | payer OTHER, MEDICARE ==
[~2019-10-03] VITALS: Ht 167.6 cm; Wt 65.2 kg
[~2019-10-03] MED LIST changes: +FERRETTS325 MG PO
--- NOTE | ~2019-10-03 | HPC ---
[facility] [place] [address] PAIN MANAGEMENT CONSULTATION Name: RUDI HOOKS [facility] [id number] Admission: 10/03/19 Attend Phys: Lizzeth aTpia MD Discharge: Date of : 40 Report #: [id number] THIS REPORT FOR: cc: NO FAMILY PHYSICIAN or PCP NO FAMILY PHYSICIAN or PCP Lizzeth Tapia MD ~ CC: LEANDRA VALLE DO Lizzeth Tapia NO PCP DATE OF SERVICE: 10/03/2019 CHIEF COMPLAINT: Here for medications, my back pain is still there. HISTORY: The patient is a 79-year-old gentleman who has been followed in the Pain Clinic because of chronic back, neck and other arthritic areas of pain. He has pain in his left hip. He rates his pain as an 8/10. He did fall. He states that he lost his balance. Overall, things are going reasonably well. He has returned today for renewal of his medications. He has a history of spinal stenosis. He continues to notice that he is more kyphotic. He has returned today with the hopes of renewing his medications. ALLERGIES: PENICILLIN. CURRENT MEDICATIONS: Methadone 10 mg 1 p.o. a.m., one half tablet midday, and 1 tablet at bedtime, hydrocodone 10/325 one p.o. t.i.d., Protonix 40 mg b.i.d., Cymbalta 60 mg daily, Wellbutrin-SR 150 mg, alprazolam 0.5 mg, iron 325 mg b.i.d., and gabapentin 300 mg t.i.d. PAIN CLINIC ASSESSMENT/PQRS: 1. 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 He does have a history of chronic back pain with some osteoarthritic changes in his left shoulder. He has suffered some rotator cuff discomfort. 2. Height 5 feet 6 inches, weight 143 pounds, BMI 23. 3. Vital Signs: Blood pressure 179/81, pulse 75, respiratory rate 18, room air saturation 97%. 4. Pain intensity, 04/14. 5. Fall history: The patient fell a few days ago. He states that he lost his balance. He did not seek medical attention. 6. Blood thinner. The patient is not on a blood thinning medication. 7. Hypertension. The patient is being treated for hypertension. 8. Opioids greater than 6 weeks. The patient received medication from the Pain Clinic. 9. Risk assessment tool, low for opioid use. 10. Functional assessment tool, 55/70. 11. Recreational drug use. [place] [address] PAIN MANAGEMENT CONSULTATION Name: RAYRAYPAYTONRUDI C [facility] #: [facility] [id number] Admission: 10/03/19 Attend Phys: Lizzeth Tapia MD Discharge: Date of : 40 Report #: [id number] 12. Tobacco: The patient currently smokes a pipe. 13. Alcohol. The patient denies frequent use of alcoholic beverages. PHYSICAL EXAMINATION: GENERAL: The patient is a well-developed, well-nourished white male. Appears his stated age. He is alert and oriented x 3. His affect is appropriate. Speech is fluent. HEENT: Normocephalic, atraumatic. Extraocular eye muscles intact. Sclerae nonicteric. The patient is wearing a facial covering. NECK: Without adenopathy. The patient has some discomfort in the back and in the area of the shoulder blades. LUNGS: Decreased breath sounds. HEART: Regular. ABDOMEN: Scaphoid. MUSCULOSKELETAL: The patient is without significant scoliosis. Does have progressive kyphosis. Walks with a somewhat forward lean and uses a cane. IMPRESSION: 1. Chronic pain involving the low back, hip and neck. 2. History of gastroesophageal problems with reflux. 3. History of ulcers. 4. History of chronic anemia. RECOMMENDATIONS: We discussed the treatment options with the patient. At this juncture, we will continue with his medications. A script for his medications has been forwarded to his pharmacy. He will continue with hydrocodone 10/325 one p.o. t.i.d. He will also continue with methadone 10 mg 1 p.o. t.i.d., total of 75 tablets have been provided. He takes one tablet in the morning, one half tablet midday, and 1 tablet at bedtime for chronic pain. He will also continue with gabapentin 300 mg. He will call us if he has any concerns. By: [phone] Lizzeth Tapia MD /geovany
[2019-10-03 09:06] VITALS: BP 179/81
--- NOTE | 2019-10-03 09:18 | NUR ---
Pain Clinic Assessment: 1. History of Osteoarthritis: BACK NECK HANDS LEFT HIP History of Rheumatoid Arthritis: Not Applicable 2. Height: 5 ft. 6 in. 167.6 cm. Weight: 143.8 lb. oz. 65.227 kg. Patient's BMI: 23.2 3. Vital Signs: BP: 179/81 Pulse: 75 Resp: 18 Temp: 02 Sat: 98 ECG Mon: 4. Pain Intensity: 3 5. Fall Risk: Dizziness: N Needs help standing or walking: Y Fallen in the last 3 months: Y Fall risk comments: 6. Patient on Blood Thinner: None 7. History of Hypertension: Y 8. Opioid Therapy greater than 6 weeks: Y Opiate Contract Signed: 02/01/16 9. Risk Assessment Tool Provided: LOW RISK 02/07 10. Functional Assessment Tool: 11. Recreational Drug Use: Never Drug Type: Tobacco Use: Current Every Day Smoker Tobacco Type: Pipe Tobacco Amount or Packs/day: How Many Years: Alcohol Use: No Frequency: Quant:
== END ==
LOC: PAIN 06:48
PROVIDERS: ATTEND Anesthesiology Pain Medicine
DX: M54.5 Low back pain (principal); M54.2 Cervicalgia; M25.559 Pain in unspecified hip; K21.9 Gastro-esophageal reflux disease without esophagitis; Z87.11 Personal history of peptic ulcer disease; Z86.2 Personal history of diseases of the blood and blood-forming organs and certain disorders involving the immune mechanism; Z88.0 Allergy status to penicillin; Z79.899 Other long term (current) drug therapy

== ENCOUNTER → 2019-11-19 | Outpatient (CLI) | payer OTHER, MEDICARE ==
[~2019-11-19] VITALS: Ht 167.6 cm; Wt 66.5 kg
[2019-11-19 13:59] VITALS: BP 106/67
--- NOTE | 2019-11-19 14:08 | NUR ---
Pain Clinic Assessment: 1. History of Osteoarthritis: BACK NECK HANDS LEFT HIP History of Rheumatoid Arthritis: Not Applicable 2. Height: 5 ft. 6 in. 167.6 cm. Weight: 146.6 lb. oz. 66.497 kg. Patient's BMI: 23.7 3. Vital Signs: BP: 106/67 Pulse: 84 Resp: 16 Temp: 02 Sat: 98 ECG Mon: 4. Pain Intensity: 3 5. Fall Risk: Dizziness: N Needs help standing or walking: Y Fallen in the last 3 months: N Fall risk comments: 6. Patient on Blood Thinner: None 7. History of Hypertension: Y 8. Opioid Therapy greater than 6 weeks: Y Opiate Contract Signed: 02/01/16 9. Risk Assessment Tool Provided: LOW RISK 02/07 10. Functional Assessment Tool: 11. Recreational Drug Use: Never Drug Type: Tobacco Use: Current Every Day Smoker Tobacco Type: Amount or Packs/day: How Many Years: Alcohol Use: No Frequency: Quant:
--- NOTE | 2019-12-03 15:48 | HPC ---
[facility] [place] [address] PAIN MANAGEMENT CONSULTATION Name: RUDI HOOKS [facility] [id number] Admission: 11/19/19 Attend Phys: Lizzeth Tapia MD Discharge: Date of : 40 Report #: [id number] CC: [facility] physician/PCP Cb Jay DATE OF SERVICE: 11/19/2019 CHIEF COMPLAINT: Here for medication renewal. HISTORY: The patient is a 79-year-old gentleman who has been followed in the pain clinic because of chronic pain. He has pain involving his neck, back and other arthritic areas. He rates his pain today as 3/10. He has pain in the upper back, lower back, left buttocks. Standing, walking and other activities exacerbate the discomfort. He notes his pain improves when he is resting. He is much less active at this juncture. He states, I don't do anything anymore, my pain is low. The patient has a history of spinal stenosis. ALLERGIES: PENICILLIN. CURRENT MEDICATIONS: Methadone 10 mg 1 p.o. a.m., one half tablet midday, and 1 tablet at bedtime, hydrocodone 10/325 one p.o. t.i.d., Protonix 40 mg b.i.d., Cymbalta 60 mg daily, Wellbutrin-SR 150 mg, alprazolam 0.5 mg, iron 325 mg b.i.d., and gabapentin 300 mg t.i.d. PAIN CLINIC ASSESSMENT AND PQRS: 1. 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 He does have a history of chronic back pain with osteoarthritis. He has arthritic changes in his left shoulder. He has some discomfort in the rotator cuff. 2. Height 5 feet 6 inches, weight 146 pounds, BMI is 23. 3. Vital Signs: Blood pressure 106/67, pulse 84, respiratory rate is 16, and room air saturation is 98%. 4. Pain intensity of 3-5/10 routinely. 5. Fall risk. The patient has not fallen since we saw him last. 6. Blood thinner. The patient is not on a blood thinning medication. 7. Hypertension. The patient is not being treated for hypertension. 8. Opioids. The patient receives medication from the pain clinic. 9. Risk assessment tool, low for opioid use. 10. Functional assessment tool 55/70. 11. Recreational drug use: The patient denies. 12. Tobacco: The patient uses a pipe. 13. Alcohol: The patient denies frequent use of alcoholic beverages. PHYSICAL EXAMINATION: GENERAL: The patient is a well-developed, well-nourished white male. Appears his stated age. He is alert and oriented x 3. His affect is appropriate. Speech is fluent. HEENT: Normocephalic, atraumatic. Extraocular eye muscles intact. The patient is wearing a facial covering. NECK: Without adenopathy. The patient has discomfort in his back and shoulder area. He is showing more and more kyphosis. LUNGS: Decreased breath sounds. HEART: Regular. ABDOMEN: Scaphoid. MUSCULOSKELETAL: The patient without significant scoliosis or lordosis. He has continued to show progressive kyphosis. He walks somewhat leaning forward and uses a cane. IMPRESSION: 1. Chronic pain in the low back, hip and neck. 2. History of gastroesophageal problems with reflux. 3. History of ulcers. 4. History of chronic anemia. RECOMMENDATIONS: We discussed treatment options with the patient. At this juncture, he feels medications are helpful. We will continue with his medications of hydrocodone 10 mg 1 p.o. t.i.d. He will also continue with methadone 10 mg 1 p.o. t.i.d. for a total of 75 tablets. The patient will call us if he has any concerns. The patient is aware that opioid medications can become less effective as time goes on due to tolerance. We would like to thank you for letting us participate in his care. We hope he continues to improve. <ELECTRONICALLY SIGNED> By: Lizzeth Tapia MD 12/03/19 1548 [id number] [id number] Lizzeth Tapia MD /nt
== END ==
LOC: PAIN 10-31 06:56
PROVIDERS: ATTEND Anesthesiology Pain Medicine
DX: Z76.0 Encounter for issue of repeat prescription (principal); G89.29 Other chronic pain; M54.5 Low back pain; M54.2 Cervicalgia; Z87.19 Personal history of other diseases of the digestive system; Z87.11 Personal history of peptic ulcer disease; Z86.2 Personal history of diseases of the blood and blood-forming organs and certain disorders involving the immune mechanism; Z88.0 Allergy status to penicillin; Z79.899 Other long term (current) drug therapy

== ENCOUNTER → 2020-01-16 | Outpatient (CLI) | payer OTHER, MEDICARE ==
[~2020-01-16] MED LIST changes: +ZOFRAN4 MG PO
== END ==
LOC: PAIN 06:42 → TELEPC 06:42 → PAIN 07:46
PROVIDERS: ATTEND Anesthesiology Pain Medicine
DX: Z76.0 Encounter for issue of repeat prescription (principal); M54.5 Low back pain; M25.559 Pain in unspecified hip; M54.2 Cervicalgia; Z88.8 Allergy status to other drugs, medicaments and biological substances; Z79.899 Other long term (current) drug therapy

== ENCOUNTER → 2020-03-12 | Outpatient (CLI) | payer OTHER, MEDICARE ==
[~2020-03-12] VITALS: Ht 165.1 cm; Wt 64.4 kg
[2020-03-12 15:15] VITALS: BP 138/82
--- NOTE | 2020-03-12 15:27 | NUR ---
Pain Clinic Assessment: 1. History of Osteoarthritis: BACK NECK HANDS LEFT HIP History of Rheumatoid Arthritis: Not Applicable 2. Height: 5 ft. 5 in. 165.1 cm. Weight: 142.0 lb. oz. 64.411 kg. Patient's BMI: 23.6 3. Vital Signs: BP: 138/82 Pulse: 89 Resp: 14 Temp: 02 Sat: 97 ECG Mon: 4. Pain Intensity: 2 TO 3 5. Fall Risk: Dizziness: N Needs help standing or walking: Y Fallen in the last 3 months: N Fall risk comments: 6. Patient on Blood Thinner: None 7. History of Hypertension: Y 8. Opioid Therapy greater than 6 weeks: Y Opiate Contract Signed: 02/01/16 9. Risk Assessment Tool Provided: LOW RISK 02/07 10. Functional Assessment Tool: 11. Recreational Drug Use: Never Drug Type: Tobacco Use: Current Every Day Smoker Tobacco Type: Pipe Tobacco Amount or Packs/day: How Many Years: Alcohol Use: No Frequency: Quant:
== END ==
LOC: PAIN 07:04 → TELEPC 07:04
PROVIDERS: ATTEND Anesthesiology Pain Medicine
DX: Z76.0 Encounter for issue of repeat prescription (principal); M54.5 Low back pain; G89.29 Other chronic pain; Z87.11 Personal history of peptic ulcer disease; D64.9 Anemia, unspecified; Z88.8 Allergy status to other drugs, medicaments and biological substances; Z79.899 Other long term (current) drug therapy

== ENCOUNTER → 2020-04-28 | Outpatient (CLI) | payer OTHER, MEDICARE ==
[~2020-04-28] VITALS: Ht 165.1 cm; Wt 62.6 kg
[2020-04-28 12:43] VITALS: BP 123/75
--- NOTE | 2020-04-28 12:51 | NUR ---
Pain Clinic Assessment: 1. History of Osteoarthritis: BACK NECK HANDS LEFT HIP History of Rheumatoid Arthritis: Not Applicable 2. Height: 5 ft. 5 in. 165.1 cm. Weight: 138.0 lb. oz. 62.596 kg. Patient's BMI: 23.0 3. Vital Signs: BP: 123/75 Pulse: 80 Resp: 16 Temp: 02 Sat: 98 ECG Mon: 4. Pain Intensity: 5 5. Fall Risk: Dizziness: N Needs help standing or walking: N Fallen in the last 3 months: N Fall risk comments: 6. Patient on Blood Thinner: None 7. History of Hypertension: Y 8. Opioid Therapy greater than 6 weeks: Y Opiate Contract Signed: 02/01/16 9. Risk Assessment Tool Provided: LOW RISK 02/07 10. Functional Assessment Tool: 11. Recreational Drug Use: Never Drug Type: Tobacco Use: Current Every Day Smoker Tobacco Type: Amount or Packs/day: How Many Years: Alcohol Use: No Frequency: Quant:
== END ==
LOC: PAIN 06:56
PROVIDERS: ATTEND Anesthesiology Pain Medicine
DX: Z76.0 Encounter for issue of repeat prescription (principal)

== ENCOUNTER → 2020-06-30 | Outpatient (CLI) | payer OTHER, MEDICARE ==
[~2020-06-30] VITALS: Ht 170.2 cm; Wt 66.2 kg
[~2020-06-30] MED LIST changes: +WELLBUTRIN XL300 MG PO
[2020-06-30 10:49] VITALS: BP 150/67
--- NOTE | 2020-06-30 10:53 | NUR ---
Pain Clinic Assessment: 1. History of Osteoarthritis: BACK NECK HANDS LEFT HIP History of Rheumatoid Arthritis: Not Applicable 2. Height: 5 ft. 7 in. 170.2 cm. Weight: 146.0 lb. oz. 66.225 kg. Patient's BMI: 22.9 3. Vital Signs: BP: 150/67 Pulse: 76 Resp: 16 Temp: 02 Sat: 95 ECG Mon: 4. Pain Intensity: 5 5. Fall Risk: Dizziness: N Needs help standing or walking: N Fallen in the last 3 months: N Fall risk comments: 6. Patient on Blood Thinner: None 7. History of Hypertension: Y 8. Opioid Therapy greater than 6 weeks: Y Opiate Contract Signed: 02/01/16 9. Risk Assessment Tool Provided: LOW RISK 1 10. Functional Assessment Tool: / 11. Recreational Drug Use: Never Drug Type: Tobacco Use: Current Every Day Smoker Tobacco Type: Pipe Tobacco Amount or Packs/day: How Many Years: Alcohol Use: No Frequency: Quant:
== END ==
LOC: PAIN 07:10
PROVIDERS: ATTEND Anesthesiology Pain Medicine
DX: M54.5 Low back pain (principal); M54.2 Cervicalgia; G89.29 Other chronic pain; K21.9 Gastro-esophageal reflux disease without esophagitis; D64.9 Anemia, unspecified; I10 Essential (primary) hypertension; G47.30 Sleep apnea, unspecified; J44.9 Chronic obstructive pulmonary disease, unspecified; F17.200 Nicotine dependence, unspecified, uncomplicated; F32.9 Major depressive disorder, single episode, unspecified; F41.9 Anxiety disorder, unspecified; Z96.611 Presence of right artificial shoulder joint

== ENCOUNTER → 2020-08-20 | Outpatient (CLI) | payer OTHER, MEDICARE | LOC: PAIN 08-11 08:52 → TELEPC 07:09 → PAIN 07:09 | PROVIDERS: ATTEND Anesthesiology Pain Medicine | DX: G89.29 Other chronic pain (principal); M54.5 Low back pain; M54.2 Cervicalgia; Z87.19 Personal history of other diseases of the digestive system; Z86.2 Personal history of diseases of the blood and blood-forming organs and certain disorders involving the immune mechanism; Z88.0 Allergy status to penicillin; Z79.899 Other long term (current) drug therapy ==

== ENCOUNTER 2020-11-12 11:28 | Inpatient (IN) | payer OTHER, MEDICARE ==
[~2020-11-12] VITALS: Ht 167.6 cm; Wt 59.0 kg
--- NOTE | ~2020-11-12 | EMS ---
[facility] [address] [place] [address] EMS Patient Care Report Name: RUDI HOOKS Room #: [facility]..#: [id number] Admission: Attend Phys: Discharge: Date of : 40 Report #: [id number] THIS REPORT FOR: //name// Report Transmitted: 11/12/2020 11:07 EMS Care Summary [facility] MED-ACT Incident [phone] @ 11/12/2020 10:37 Incident Location [address] [place] [address] Patient FELIPE HUERTA Male, 80 Years 1940 Patient Address [address] [place] [address] Patient History Diabetes, Patient Medications Metformin, Morphine, Hydrocodone, Chief Complaint syncope Disposition Transported No Lights/[place] Dis[place] Reason Unknown Problem/Person Down Transported To [facility] Narrative AOS to find 80y/o male laying in his bathroom on his left side. Pt is AAO2 (alert to name and place) and is breathing on his own at 20 /min. Neighbors called facilities today because of an ongoing smell coming from pts home. facilities arrived today and had to remove the door know to enter into pts home [facility] [address] [place] [address] EMS Patient Care Report Name: RUDI HOOKS Room #: [facility] Simón#: [id number] Admission: Attend Phys: Discharge: Date of : 40 Report #: [id number] and found pt laying on his left side covered in feces and breathing slow. they called 911 at that time. upon arrival of EMS pt is able to answer some questions and states he recalls falling off of his toilet to the ground but he is unable to give any sort of time line. pts house is very disheveled and letters from over a month ago are piled up at his front door. 3 medicine bottles found, morphine (empty) hydrocodone (empty) and Metformin (not touched). Pt is covered in dried, dark feces from his ankles to his low back and his hand are covered as well. Lt from Q41 spent time cleaning pt up as much as possible with baby wipes. pt moved to blanket to be carried to cot. Pt moved to MICU and transported to [facility] per pt wishes. 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 It is designed to provide pertinent information for the following purposes: continuity of care, clinical quality, and state data reporting. The complete legal record is available to ED staff and administrators of the receiving hospital in [employer] Patient Tracker. All data is provided "as is."
[2020-11-12 11:28] VITALS: BP 167/65
[2020-11-12 12:04] LABS: ABSOLUTE NEUTROPHILS 12.4 thou/uL (1.4-8.2); EOSINOPHILS 0.3 % (0.0-3.0); HEMATOCRIT 41.7 % (42.0-52.0); HEMOGLOBIN 13.6 gm/dL (14.0-18.0); MCH 30.2 pg (26.0-34.0); MCHC 32.8 g/dL (28.0-37.0); MCV 92.3 fL (80.0-100.0); MONOCYTES 3.6 % (1.0-8.0); PLATELET COUNT 267 thou/uL (150-400); POLYS 85.1 % (36.0-66.0); RBC 4.51 mil/uL (4.50-6.00); RDW 13.9 % (10.5-14.5); WBC 14.6 thou/uL (4.0-11.0)
[2020-11-12 12:12] LABS: CALCIUM 9.2 mg/dL (8.5-10.1); CREATININE 1.6 mg/dL (0.7-1.3); POTASSIUM 3.5 mmol/L (3.5-5.1)
[2020-11-12 12:18] LABS: TOTAL BILIRUBIN 0.4 mg/dL (0.2-1.0); TOTAL PROTEIN 7.5 g/dL (6.4-8.2)
[2020-11-12] MEDS ORDERED: METHADONE HCL 110 M1 PO (15:13)
[2020-11-12 15:25] VITALS: BP 185/59
[2020-11-12 15:34] LABS: URINE BILIRUBIN NEGATIVE (Negative); URINE BLOOD NEGATIVE (Negative); URINE CLARITY CLEAR; URINE COLOR YELLOW; URINE GLUCOSE-RANDOM* NEGATIVE (Negative); URINE KETONES NEGATIVE (Negative); URINE LEUKOCYTES-REFLEX 1+ (Negative); URINE NITRITE-REFLEX NEGATIVE (Negative); URINE PROTEIN (DIPSTICK) NEGATIVE (Negative); URINE UROBILINOGEN 0.2 E.U./dl (0.2-1.0)
[2020-11-12] MEDS ORDERED: NEURONTIN 300M300 M2 PO (15:34)
[2020-11-12 15:45] LABS: AMP/METHAMP Negative (Negative); BARBITURATES Negative (Negative); BENZODIAZEPINES Negative (Negative); COCAINE Negative (Negative); METHADONE Negative (Negative); OPIATES Negative (Negative); PCP Negative (Negative)
[2020-11-12 15:50] VITALS: BP 175/96
[2020-11-12 15:55] LABS: BACTERIA-REFLEX 1-9 Few /HPF (None Seen); MUCUS 0-3 Light strn/LPF (None Seen); SQUAMOUS 0-3 Few /LPF (0-3); URINE RBC 1-2 Rare /HPF (NONE SEEN); URINE WBC-REFLEX 6-15 Few /HPF (0-5)
[2020-11-12 16:11] LABS: FOLIC ACID 9.9 ng/mL (8.6-58.9)
--- NOTE | 2020-11-12 16:33 | NUR ---
PT ADMITTED RELATED TO SYNCOPE/FALLS/WEAKNESS. CM REVIEWED CHART AND SPOKE WITH CARE TEAM. CM MET WITH PT AT BEDSIDE THIS DAY. PT APPEARED TO BE A&O X4. CM ROLE INTRODUCED. PT INDICATED THAT PT RESIDES IN AN APARTMENT ALONE. 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 PT INDICATED HE HAS CANES, FWW, AND WALKING STICKS FOR HOME USE. PT INDICATED HE DOESN'T HAVE A PCP AND HASN'T SEEN DR. CROSS PAIN MANAGEMENT RECENTLY. PT INDICATED THAT HE HASN'T HAD HH OR SKILLED POST ACUTE CARE STAY IN PAST ALTHOUGH RECORD SHOWS PT WENT TO [facility] SOME YEARS AGO. PT INDICATED THAT [facility]ER SERVICES. PT INDICATED HE MIGHT BE RECEPTIVE TO SHORT TERM POST ACUTE CARE STAY IF NEEDED UPON DC. CM FOLLOWING REGARDING DC PLANNING.
--- NOTE | 2020-11-12 17:22 | NUR ---
PATIENT ARRIVED TO FLOOR FROM ER ABOUT 1630. UPON ARRIVAL PT WAS ABLE TO AMBULATE WITH 1X ASSISTANCE TO BED, IS ALERT AND ORIENTED, PERIPHERAL PULSES GOOD, SYSTEMS WDL, VITALS STABLE WITH HIGH BP DUE TO PAIN, PAIN MEDS GIVEN, ALL INPATIENT ADMIT CHECKLIST COMPLETED, CONSENTS SIGNED, PT EDUCATED, HOOKED UP TO FLUIDS AND ANTIBIOTICS, AND RESTING QUIETYLY IN ROOM. VERBALIZES HE WILL CALL BEFORE AMBULATING, FALL PRECAUTIONS IN PLACE. WILL CONTINUE TO MONITOR AND UPDATE WAREHOUSE MANAGER RN
[2020-11-12 19:57] VITALS: BP 115/74
--- NOTE | 2020-11-13 05:07 | NUR ---
Pt. rested quietly during the night when checked on during frequent rounds. He has been incontinent of urine at times and other times he has used the urinal. C/o back pain and pain meds given (see emar) with some relief noted. Bed alarm is on.
[2020-11-13 07:04] LABS: ALBUMIN 2.7 g/dL (3.4-5.0); CALCIUM 8.4 mg/dL (8.5-10.1); CREATININE 0.9 mg/dL (0.7-1.3); MAGNESIUM 1.9 mg/dL (1.8-2.4); POTASSIUM 3.6 mmol/L (3.5-5.1); TOTAL BILIRUBIN 0.3 mg/dL (0.2-1.0); TOTAL PROTEIN 5.2 g/dL (6.4-8.2)
[2020-11-13 07:47] VITALS: BP 96/47
--- NOTE | 2020-11-13 09:36 | NUR ---
PT REFUSED OT EVAL, DESPITE MUCH ENCOURAGEMENT. PLEASE SEE OT VARIANCE
[2020-11-13 10:01] LABS: HEMATOCRIT 29.5 % (42.0-52.0); MCH 30.9 pg (26.0-34.0); MCHC 33.1 g/dL (28.0-37.0); MCV 93.4 fL (80.0-100.0); RBC 3.16 mil/uL (4.50-6.00); RDW 13.8 % (10.5-14.5); WBC 10.7 thou/uL (4.0-11.0)
[2020-11-13 11:11] LABS: HEMOGLOBIN 9.8 gm/dL (14.0-18.0)
[2020-11-13 11:12] LABS: PLATELET COUNT 178 thou/uL (150-400)
--- NOTE | 2020-11-13 13:22 | NUR ---
PT AGREED TO OT EVAL IN PM. SEE OT EVAL
[2020-11-13 13:38] LABS: ABSOLUTE NEUTROPHILS 8.3 thou/uL (1.4-8.2)
[2020-11-13 13:40] LABS: ANISOCYTOSIS SLIGHT
--- NOTE | 2020-11-13 14:57 | EKG ---
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1940 Requested By: Kosta Jones Order Number: [id number] MD: Frandy Stewart Measurements Intervals [place] Rate: 79 P: 71 SC: 159 QRS: 52 QRSD: 88 T: 58 QT: 417 QTc: 479 Interpretive Statements Sinus rhythm Borderline prolonged QT interval Compared to ECG 08/03/2019 15:21:24 Sinus tachycardia no longer present Atrial premature complex(es) no longer present Electronically Signed On 11-13-2020 14:57:19 CDT by Frandy Stewart [email or web address] <ELECTRONICALLY SIGNED> By: Frandy Stewart MD, [facility] 11/13/20 1457 1130 1130 Frandy Stewart MD, [facility] /EPI
--- NOTE | 2020-11-13 15:05 | NUR ---
CONSULT RECEIVED FOR [facility] ACUTE REHAB ASSESSMENT. PT AND OT EVALS IN PROGRESS. PATIENT INITIALLY REFUSED OT EVALUATION THIS MORNING; OT RE-ATTEMPTING EVALUATION THIS AFTERNOON. PER RN, PATIENT IS NOT READY TO TRANSFER TO ACUTE REHAB THIS DATE. REHAB ADMISSIONS FOLLOWING AND ASSESSING CANDIDACY FOR [facility] ACUTE REHAB. IF THERE ARE ANY QUESTIONS, PLEASE CONTACT CUFF PRESSER AT [phone]. THANK YOU.
[2020-11-13 16:39] VITALS: BP 113/59
--- NOTE | 2020-11-13 18:46 | NUR ---
ASSUMED CARE OF PT AT 0700. PT CONTINUES TO BE ALERT AND ORIENTED TODAY, WITH STABLE VITALS. WORKED WITH BOTH THERAPIES TODAY AND AMBULATES USING A CANE AND SBA. GOOD APPETITE, PAIN CONTROLLED BY SCHEDULED AND PRN ORAL PAIN MEDICINE. DISCUSSED WITH MD IN AM THAT LAB HAD REPORTED A LARGE DROP OF HGB AND HCT AFTER BEING DRAWN TWICE. MD IS AWARE AND DOES NOT BELIEVE IT TO BE AN ACUTE BLEED. PT RESTING IN ROOM WITH NO COMPLAINTS, WILL CONTINUE TO MONITOR.
[2020-11-13 20:01] LABS: % SATURATION 42 % (20-39); IRON 83 ug/dL (65-175); TIBC 197 ug/dL (250-450)
[2020-11-13 20:54] VITALS: BP 92/42
[2020-11-14 06:06] LABS: HEMATOCRIT 26.1 % (42.0-52.0); MCH 31.7 pg (26.0-34.0); MCHC 34.5 g/dL (28.0-37.0); RBC 2.84 mil/uL (4.50-6.00); RDW 13.7 % (10.5-14.5); WBC 10.7 thou/uL (4.0-11.0)
[2020-11-14 07:11] LABS: CALCIUM 8.3 mg/dL (8.5-10.1); CREATININE 0.7 mg/dL (0.7-1.3); POTASSIUM 3.5 mmol/L (3.5-5.1)
[2020-11-14 07:57] VITALS: BP 174/88
--- NOTE | 2020-11-14 09:33 | NUR ---
ASSUMED CARE AT 1900, PT LAYING IN BED REPORTS NO PAIN OR DISCOMFORT, COMPLIANT WITH TX, NO ADVERSE REACTION NOTED, UTILIZES CALL LIGHT WHEN NEEDS ARISES, SLEPT THROUGH THE NIGHT, ACCIDENTALLY PULLED OUT IV DURING AMBULATION, NEW IV ON THE LEFT FOREARM INITIATED, WILL CONTINUE TO MONITOR.
[2020-11-14 16:50] VITALS: BP 133/86
--- NOTE | 2020-11-14 18:04 | NUR ---
Pt A & O x2. Pt gets confused at times. Pt is impulsive and fall precautions in place. Pt VS stable. Pt received medications as ordered. Pt is room air. Pt is able to make needs known.
[2020-11-14 19:46] VITALS: BP 105/63
--- NOTE | 2020-11-15 03:11 | NUR ---
ASSUMED CARE AT 1900, PT COMFORTABLY LAYING IN BED, REPORTS LOWER BACK PAIN, CAUSING DISCOMFORT, PRN MEDICATION ADMINISTERED, ASSISTED TO THE TOILED, STOOL COLLECTED FOR OCCULT TEST, PT CONTINUES RECEIVING FLUIDS, TOIETING NEEDED, NO ADVERSE REACTIONN NOTED, SLEPT THROUGH THE NIGHT, WILL CONTINUE TO MONITOR.
[2020-11-15 05:48] LABS: HEMATOCRIT 24.3 % (42.0-52.0); HEMOGLOBIN 8.3 gm/dL (14.0-18.0); MCH 31.7 pg (26.0-34.0); MCHC 34.1 g/dL (28.0-37.0); MCV 92.8 fL (80.0-100.0); RBC 2.62 mil/uL (4.50-6.00); RDW 14.1 % (10.5-14.5); WBC 6.6 thou/uL (4.0-11.0)
[2020-11-15 06:05] LABS: CALCIUM 7.9 mg/dL (8.5-10.1); CREATININE 0.7 mg/dL (0.7-1.3); POTASSIUM 3.4 mmol/L (3.5-5.1)
--- NOTE | 2020-11-15 07:43 | NUR ---
Sleeping soundly without s/o distress. Alert and orientated to self and hospital when awakened. Sits up at side of bed without assistance. Occassional involuntary jerks. Denies pain at this time. Breath sounds clear without nasal flaring or retractions on RA. Reg HR auscultated. Color pink with brisk capillary refill and palpable peripheral pulses. Incontinenta and continent of yellow urine. Hyperactive bowel sounds over soft, flat abdomen. Currently sleeping without s/o distress.
[2020-11-15 09:35] VITALS: BP 139/72
[2020-11-15 11:16] VITALS: BP 126/43
[2020-11-15 16:53] VITALS: BP 136/69
--- NOTE | 2020-11-15 17:13 | NUR ---
Pt to have EGD in the am due to upper gi bleed. [facility] rehab eval completed and they can accept if he is agreeable. Pt to think about it. Will follow.
[2020-11-15 19:17] VITALS: BP 139/67
--- NOTE | 2020-11-16 04:13 | NUR ---
PT CARE ASSUMED WITH PT IN BED RESTING.PT IS A./OX4.PT IS UP WITH X1 ASSIST AND FORGETFUL AND IMPULSIVE.NEW IV ACCESS STARTED ON RT AC WITH NS AT 75CC/HR.PT NPO FROM MIDNIGHT FOR EGD.FALL BUNDLE IN PLACE.WILL CONTINUE TO MONITOR PER POC
[2020-11-16 05:46] LABS: HEMATOCRIT 23.4 % (42.0-52.0); MCH 31.6 pg (26.0-34.0); MCHC 34.2 g/dL (28.0-37.0); MCV 92.4 fL (80.0-100.0); RBC 2.53 mil/uL (4.50-6.00); RDW 13.9 % (10.5-14.5); WBC 7.9 thou/uL (4.0-11.0)
[2020-11-16 05:57] LABS: CALCIUM 8.3 mg/dL (8.5-10.1); CREATININE 0.7 mg/dL (0.7-1.3); POTASSIUM 3.8 mmol/L (3.5-5.1)
[2020-11-16 07:48] VITALS: BP 141/75
[2020-11-16 13:57] VITALS: BP 170/81
--- NOTE | 2020-11-16 14:14 | NUR ---
TODAY THIS PT HAS HAD AN EGD AND HAS OTHERWISE NO STATED PAIN AND STABLE VS. HE HAS BEEN WALKING AROUND WITH PT/OT AND TOLERATING IT WELL. HE OTHERWISE HAS BEEN TOLERATING HIS MEDICATIONS AND HIS FLUIDS WELL AND IS AWAITING FOR THE NEXT PLAN.
[2020-11-16 16:00] VITALS: BP 170/81
[2020-11-16 19:57] VITALS: BP 144/81
--- NOTE | 2020-11-17 03:00 | NUR ---
PT CARE ASSUMED WITH PT IN BED .PT IS A/O X4 AND FORGETFUL.PT IS UP WITH X1 ASSIST TO THE RESTROOM AND USES A URINAL.PT C/O PAIN ON BACK AND PAIN MANAGED WITH NORCO WITH PARTIAL RELIEF.PT IS ON ROOM AIR.PT CONTINENT AND INCONTINENT.IV ACCESS ON RT AC WITH NS AT 75CC/HR.WILL CONTINUE TO MONITOR PER POC
[2020-11-17 06:50] LABS: HEMATOCRIT 22.6 % (42.0-52.0); MCH 32.3 pg (26.0-34.0); MCHC 35.3 g/dL (28.0-37.0); MCV 91.5 fL (80.0-100.0); RBC 2.47 mil/uL (4.50-6.00); RDW 13.9 % (10.5-14.5); WBC 8.1 thou/uL (4.0-11.0)
[2020-11-17 07:07] VITALS: BP 122/75
[2020-11-17 07:26] LABS: CALCIUM 8.2 mg/dL (8.5-10.1); CREATININE 0.6 mg/dL (0.7-1.3)
[2020-11-17] MEDS ORDERED: CARAFATE 1 GM TA1 G1 PO (12:40)
[2020-11-17] MEDS ORDERED: LEVOFLOXACIN500 MG PO (12:41)
[2020-11-17] MEDS ORDERED: METHOCARBAMOL750 MG PO (12:41)
[2020-11-17] MEDS ORDERED: PROTONIX40 M2 PO (12:42)
--- NOTE | 2020-11-17 14:43 | NUR ---
PT HAD EGD DONE YESTERDAY. CARE TEAM INDICATED THAT IS MEDICALLY STABLE TO DC TO 5N THIS DAY. PT IS AWARE AND AGREEABLE. NURSE CALLED REPORT TO 5N. NO OTHER CM INTERVENTION INDICATED. CASE CLOSED.
--- NOTE | 2020-11-17 14:48 | NUR ---
Pt a&o x2-3. Pt vs stable. Pt received medications as ordered. Pt received discharge orders to in hospital rehab. Pt wheeled to rehab unit by staff with IV intact per rehab nurse request. Pt personal belongings with pt. pt is able to make needs known.
--- NOTE | 2020-11-17 16:18 | P ---
[facility] [place] [address] PROCEDURE REPORT Name: JESSEERUDI Antwon Room #: 460-P [facility]#: [id number] Admission: 11/12/20 Attend Phys: Compa Narvaez MD Discharge: 11/17/20 Date of : 40 Report #: [id number] THIS REPORT FOR: cc: FAM - No family physician/PCP FAM - No family physician/PCP Nimesh Iniguez MD ~ cc: Compa Narvaez MD DATE OF SERVICE: 11/16/2020 PROCEDURE PERFORMED: Upper endoscopy with biopsies and esophageal dilation. HISTORY OF PRESENT ILLNESS: The patient is an 80-year-old male who was found down at home recently, confused, recent history of melanotic type stools, drop in hemoglobin. He has a known previous history of duodenal ulcer on upper endoscopy approximately [address] Abbott at that time. 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 The patient apparently has been taking NSAIDs at home. Hemoglobin on admission was 13.6, has dropped to 8.0. He does report intermittent dysphagia. Plan is for upper endoscopy. DESCRIPTION OF PROCEDURE: The risks and benefits of the procedure were explained to the patient, those risks including but not limited to bleeding, perforation and the risk of sedation. He understood these risks and gave informed consent. Sedation was given using propofol per Anesthesia. Next, using a standard Olympus upper endoscope, the scope was placed in the patient's mouth and advanced under direct vision through the esophagus, stomach and into the second portion of the duodenum. The larynx was normal in appearance. The upper and mid esophagus were normal. In the distal esophagus, grade B erosive esophagitis was noted. A mild narrowing was noted at the GE junction as well. Upon entering the stomach, a small hiatal hernia was noted. Overall, the gastric mucosa was normal. In the fundus and body, a gastritis with several small erosions were noted in the gastric antrum. No evidence of bleeding. The pylorus was normal and patent. Upon entering the duodenal bulb, a large deep duodenal bulb ulcer involving the bulb and first portion of the duodenum was noted. There was no active bleeding. It did cause a narrowing in this area. I was able to pass a scope through this area into the second portion of the duodenum, which showed mild duodenitis, but no other ulcerations were noted. The scope was then brought back up into the patient's stomach and biopsies were obtained to rule out H. pylori. Next, a Savary guidewire was inserted through the scope, leaving the guidewire in place as the scope was then withdrawn. Next, a 48-Divehi Savary dilation of the esophagus was then performed without difficulty. The wire and dilator were removed. The scope was reintroduced into the patient's stomach. No evidence of mucosal tear was noted after dilation. The scope was then withdrawn and the procedure terminated. The patient tolerated the procedure well. [address] [address] PROCEDURE REPORT Name: RUDI HOOKS Room #: 460-P [facility] ..#: [id number] Admission: 11/12/20 Attend Phys: Compa Narvaez MD Discharge: 11/17/20 Date of : 40 Report #: [id number] IMPRESSION: 1. Large duodenal bulb ulcer, likely source of recent melanotic stools and drop in hemoglobin. No evidence of active bleeding at this time, no visible vessel or clot was seen. 2. Duodenitis. 3. Gastritis with gastric erosions. 4. Small hiatal hernia. 5. Grade B erosive esophagitis with narrowing in the distal esophagus. RECOMMENDATIONS: 1. Await biopsy results. 2. Continue PPI therapy. 3. We will add Carafate at this time. 4. Continue to hold anticoagulation. Thank you for allowing me to participate in his care. <ELECTRONICALLY SIGNED> By: Nimesh Iniguez MD 11/17/20 1618 1200 1551 Nimesh Iniguez MD /nt
--- NOTE | 2020-11-19 10:26 | PATH ---
[facility] [address] [place] [address] PATHOLOGY RPT PROCEDURE Name: MUSHTAQ BECK Room #: 460-P [facility] IN M.R.#: [id number] Admission: 11/12/20 Date of : 40 Discharge: 11/17/20 Report #: [id number] Path Case #: [id number] [facility] Accession Number: [id number] . 01 Material submitted: . gastrointestinal site - GASTRITIS BX . 01 Clinical history: . R/O H. PYLORI UPPER GI BLEED, POSS HEMOCRIT, MELLINA DUODENAL ULCER, GASTRITIS, ESOPHAGITIS . 02 Diagnosis: Gastric mucosa, gastritis, biopsy: - Focal mild active chronic gastritis. - H. pylori immunohistochemical stain is negative. . (SCA:mml; 11/18/2020) QLM 11/18/2020 1250 Local . 02 Electronically signed: . Mushtaq Chino DO, Pathologist NPI- [id number] . 01 Gross description: . The specimen is received in formalin, labeled "Mushtaq Beck, gastritis biopsy". Received are three segments of pale ny tissue ranging in size from 0.3-0.5 cm in maximum dimensions. The specimen is submitted entirely in cassette A1. (CAA; 11/17/2020) QA/QA 11/17/2020 0958 Local . 02 Pathologist provided ICD-10: K29.50 . 02 CPT . 004874, R83850 Specimen Comment: A courtesy copy of this report has been sent to [phone] Specimen Comment: 1852 Specimen Comment: Report sent to / DR TOBAR Specimen Comment: A duplicate report has been generated due to demographic updates. Performed at: [facility] [address] [place] [address] [id number] MD Guillaume Chen MD Phone: [phone] [address] [address] PATHOLOGY RPT PROCEDURE Name: JESSEEMUSHTAQ Room #: 460-P [facility] M.R.#: [id number] Admission: 11/12/20 Date of : 40 Discharge: 11/17/20 Report #: [id number] Path Case #: [id number] Performed at: 02 [facility] [address] [id number] MD Caesar Perkins MD Phone: [phone]
--- NOTE | 2020-11-23 15:24 | HC ---
[facility] [place] [address] CONSULTATION Name: RAYRAYPAYTONRUDI Antwon Room #: 460-P COUNT INCLUDES THE [facility]#: [id number] Admission: 11/12/20 Attend Phys: Compa Narvaez MD Discharge: 11/17/20 Date of : 40 Report #: [id number] THIS REPORT FOR: cc: DALILA - No family physician/PCP DALILA - No family physician/PCP Landon Gómez MD ~ DATE OF SERVICE: 11/15/2020 HISTORY OF PRESENT ILLNESS: The patient is an 80-year-old white male who was admitted with a fall. He complains of generalized weakness and debilitation. Neighbors called and EMS found a foul smell coming from the patient's home and he was noted to be lying on his side covered in feces. He was unable to recall how long he had been down. The patient's apartment was noted to be very disheveled. He has a history of chronic back pain with scoliosis and has been on chronic narcotic use with methadone/hydrocodone per Dr. Tapia. He was diagnosed during this hospitalization with acute renal insufficiency and a urinary tract infection. He may have a superimposed toxic metabolic encephalopathy. He had a decline in his functional independence. We are seeing him in rehabilitation medicine consultation. PRIOR MEDICAL HISTORY: Includes depression, anxiety, chronic low back pain, left rotator cuff surgery, right biceps surgery, right shoulder replacement, obstructive sleep apnea, anemia, COPD, stomach ulcers, left scoliosis. MEDICATIONS: Please see the full medication listing. SOCIAL HISTORY: Lives in an apartment alone, does not have any support systems, and there is no family listed. Premorbid cane versus walker ambulator. No steps. HABITS: Noted to be a pipe smoker of tobacco. REVIEW OF SYSTEMS: Did not offer any current complaints of chest pain, shortness of breath, abdominal discomfort. PHYSICAL EXAMINATION: GENERAL: The patient is an 80-year-old male, in no obvious distress. He is alert. VITAL SIGNS: Temperature 37.1, pulse 88, respirations 18, blood pressure 105/63. NEUROLOGIC: Facies are symmetric. There is a definite latency to his responses. He will follow basic 1-step commands. EOMs appeared to be full. He has functional range of motion of both upper extremities, strength is grade 4-/5. Lower extremities, he has decreased distal sensation consistent with some premorbid neuropathy. Strength in lower extremities is probably a grade 4-/5. He has been standby assistance, sit to stand [place] [address] CONSULTATION Name: RAYRAYPAYTONRUDI C Room #: 460-[facility]#: [id number] Admission: 11/12/20 Attend Phys: Compa Narvaez MD Discharge: 11/17/20 Date of : 40 Report #: [id number] min assist with a cane. ASSESSMENT: An 80-year-old white male with the following problem list: 1. Gait instability with fall. 2. Possible toxic metabolic encephalopathy. 3. Acute renal insufficiency. 4. Urinary tract infection. 5. Chronic pain syndrome with scoliosis, chronic narcotic usage through the pain clinic utilizing methadone. 6. Limited social support. 7. Generalized weakness and debilitation. PLAN: The patient would be a candidate for a short acute in-hospital inpatient rehabilitation stay if he is medically stabilized and if he is agreeable to participation. He apparently refused one of his original OT visits, but then did work with the OT later in the afternoon from my review of the records. We will be glad to follow along with you regarding his rehab therapy needs. <ELECTRONICALLY SIGNED> By: Landon Gómez MD 11/23/20 1524 [id number] Landon Gómez MD /nt
== END 2020-11-17 14:59 | DRG 368 ==
LOC: ER 11:28 → EROBS 14:31 → 4W 14:31
PROVIDERS: Emergency Medicine; Nurse Practitioner; ADMIT Hospitalist; ATTEND Hospitalist
PROC: 3E02340 Introduction of Influenza Vaccine into Muscle, Percutaneous Approach (ICD-10-PCS; principal; 2020-11-16)
PROC: 0DB68ZX Excision of Stomach, Via Natural or Artificial Opening Endoscopic, Diagnostic (ICD-10-PCS; principal; 2020-11-16)
PROC: 0D758ZZ Dilation of Esophagus, Via Natural or Artificial Opening Endoscopic (ICD-10-PCS; principal; 2020-11-16)
DX: K20.91 Esophagitis, unspecified with bleeding (principal); K25.4 Chronic or unspecified gastric ulcer with hemorrhage; E43 Unspecified severe protein-calorie malnutrition; K57.31 Diverticulosis of large intestine without perforation or abscess with bleeding; K26.4 Chronic or unspecified duodenal ulcer with hemorrhage; K29.81 Duodenitis with bleeding; K29.71 Gastritis, unspecified, with bleeding; N17.9 Acute kidney failure, unspecified; N39.0 Urinary tract infection, site not specified; M48.00 Spinal stenosis, site unspecified; W18.39XA Other fall on same level, initial encounter; Y93.89 Activity, other specified; Y92.89 Other specified places as the place of occurrence of the external cause; Y99.8 Other external cause status; I10 Essential (primary) hypertension; F32.A Depression, unspecified; Z88.0 Allergy status to penicillin; D64.9 Anemia, unspecified; M75.101 Unspecified rotator cuff tear or rupture of right shoulder, not specified as traumatic; G47.30 Sleep apnea, unspecified; Z68.21 Body mass index [BMI] 21.0-21.9, adult; E86.0 Dehydration; Z20.822 Contact with and (suspected) exposure to COVID-19; J44.9 Chronic obstructive pulmonary disease, unspecified; K44.9 Diaphragmatic hernia without obstruction or gangrene; K22.2 Esophageal obstruction; G89.4 Chronic pain syndrome; Z23 Encounter for immunization
CPT/HCPCS: 10040; 62110; 62900; 70005

== ENCOUNTER 2020-11-17 13:28 | Inpatient (IN) | payer OTHER, MEDICARE ==
[~2020-11-17] VITALS: Ht 167.6 cm; Wt 60.4 kg
[~2020-11-17 13:28] MED LIST changes: +LEVOFLOXACIN500 MG PO; +METHOCARBAMOL750 MG PO
--- NOTE | 2020-11-17 15:51 | NUR ---
1500 ADMITTED TO ROOM 513. PATIENT IS ALERT AND ORIENTED X2-3, BUT FORGETFUL AND IMPULSIVE. PATIENT GAO'S, FIRST OFFICER ARE EQUAL. LUNGS ARE CLEAR AND DEMINISHED. ABD IS SOFT WITH BSX4. UP ON SIDE OF BED TO USE URINAL TO VOID QUINTEN COLORED URINE. PATIENT HAS S.L. IN HIS RIGHT AC. IV SITE WITHOUT REDNESS OR SWELLING. CALL LIGHT IN REACH. CONSENTS SIGNED. FALL AND SAFETY PROTOCOLS IN PLACE. C/O BACK PAIN. MEDICATED WITH PRN PAIN MED. PT/OT/ST QUINTERO TO BE DONE IN A.M. WILL CONTINIUE TO MONITER.
[2020-11-17 19:32] VITALS: BP 103/59
--- NOTE | 2020-11-18 04:22 | NUR ---
ASSUMED CARE AT 1900 OF 11/17. PATIENT IS A&O TO PERSON AND PLACE, CAN BE IMPULSIVE. PATIENT REQUIRED REMINDERS TO USE CALL LIGHT WHEN NEEDING ASSISSTANCE TO USE URINAL, AFTER TRYING TO GET UP FROM BED TO USE URINAL WITHOUT ASSISSTANCE. PATIENT EXPRESSES UNDERSTANDING. CAN BE INCONTINENT OF BLADDER AT TIMES, TWO EPISODES OF INCONTINENCE DURING SHIFT SO FAR. NO C/O PAIN, DENEIS SHORTNESS OF BREATH. TOLERATED ORAL MEDS WHOLE WITH THIN LIQUIDS. FALL PRECAUTIONS IN PLACE, CALL LIGHT W/IN REACH. WILL CONTINUE TO MONITOR.
[2020-11-18 06:12] LABS: HEMATOCRIT 22.9 % (42.0-52.0); HEMOGLOBIN 8.1 gm/dL (14.0-18.0); MCH 32.6 pg (26.0-34.0); MCHC 35.4 g/dL (28.0-37.0); MCV 92.2 fL (80.0-100.0); RBC 2.48 mil/uL (4.50-6.00); RDW 14.3 % (10.5-14.5); WBC 6.6 thou/uL (4.0-11.0)
[2020-11-18 06:50] LABS: CALCIUM 8.3 mg/dL (8.5-10.1); CREATININE 0.6 mg/dL (0.7-1.3); POTASSIUM 3.8 mmol/L (3.5-5.1)
[2020-11-18 08:00] VITALS: BP 107/65
--- NOTE | 2020-11-18 11:55 | NUR ---
Seen r/t high risk screen. Pt with 13 lb (9%) wt loss over 1 year, not significant. 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 He is s/p EGD, esophegeal dilation with biopsies taken; GI bleed, gastritis and grade B esophagitis. Currently on ABT for UTI. On full liquid diet, GI following for diet advance. Sleeping x [address] to visit. Will follow up as diet advances. Low nutrition risk.
--- NOTE | 2020-11-18 16:15 | NUR ---
Chart review. He lives alone in apartment. Manage own medication. pain management MD, not seen PCP in years. Has cane, walking stick and fww. Had homemaker serviced in past through [facility]. Unable to visit with shyam, resting with eyes closed and working with therapy. Will cont following as needed for dc needs.
--- NOTE | 2020-11-18 18:00 | NUR ---
Pt is A & O x4. Pt VS stable. Pt worked with PT/OT. Pt received medications as ordered and also received PRN pain medications. Pt is able to make known. Pt is x 1 assist with walker with ADLs and cares.
[2020-11-18 19:55] VITALS: BP 129/78
--- NOTE | 2020-11-19 04:25 | NUR ---
ASSUMED CARE OF PT AT SHIFT CHANGE. PT IS AOX3-4 AND LETS NEEDS BE KNOWN. FALL PRECAUTION IN PLACE. PT REPORTED SOME PAIN; PRNS PROVIDED. PT DENIED NAUSEA OR SOA. ASSESSMENT CHARTED. PT WAS ABLE TO GET COMFORTABLE AND SLEEP PART OF THE SHIFT. WILL CONTINUE TO MONITOR FOR CHANGES.
[2020-11-19 08:00] VITALS: BP 109/59
--- NOTE | 2020-11-19 10:17 | NUR ---
ASSUMED CARE AT 0700. PATIENT IS ALERT AND ORIENTED X 3-4. PATIENT IS FORGETFUL AT TIMES. 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 LUNGS ARE DEMINISHED. ABD IS SOFT WITH BSX4. PATIENT HAD BM THIS AM. HOLD ALL LAXATIVES. DIET ADVANCED TO REGULAR DIET. PATIENT CAN BE IMPULSIVE. PATIENT WEARS BRIEF. UP WITH GAIT BELT AND WALKER. UP IN CHAIR FOR MEALS. FALL AND SAFETY PROTOCOLS IN PLACE. C/O BACK PAIN. MEDICATED WITH PRN PAIN MED. CONTINUES TO PROGRESS SLOWLY TOWARDS D/C GOALS. WILL CONTINUE TO MONITER.
--- NOTE | 2020-11-19 12:21 | NUR ---
Cont. therapy. DCP as needed for dc needs.
[2020-11-19 19:47] VITALS: BP 126/67
--- NOTE | 2020-11-20 05:02 | NUR ---
ASSUMED CARE OF PT AT SHIFT CHANGE. PT IS AOX3-4 AND LETS NEED SBE KNOWN. FALL PRECAUTION IN PLACE. PT DENIED PAIN, NAUSEA OR SOA. ASSESSMENT CHARTED. PT WAS ABLE TO GET COMFORTABLE AND SLEEP PART OF THE SHIFT. VSS AND NO S/S OF ACUTE DISTRESS. WILL CONTINUE TO MONITOR FOR CHANGES.
[2020-11-20 08:45] VITALS: BP 124/67
--- NOTE | 2020-11-20 15:14 | NUR ---
Pt remained safe during the day, Walked w/ PT/OT, remained in bed. Pt stated that he was a little lonely , entertainment provided, and more frequent round in the room, now Pt feels, no concerns voiced, uses urinal, and all fall precaution in place.
[2020-11-20 19:24] VITALS: BP 164/91
--- NOTE | 2020-11-21 00:17 | NUR ---
PT ALERT AND ORIENTED X 4. STANDS AT SIDE OF BED TO USE URINAL WITH ASSIST X 1. PT TAKES MEDS WITH WATER WITHOUT DIFFICULTY. PT C/O BACK PAIN. ROBAXIN GIVEN AT HS AND PT HAS NOT ASKED FOR ANYTHING MORE FOR PAIN. BED ALARM ON FOR SAFETY. PT APPEARS TO BE SLEEPING ON HOURLY ROUNDS.
[2020-11-21 08:29] VITALS: BP 122/69
--- NOTE | 2020-11-21 17:37 | NUR ---
Assumed Pt care at shift change. A/O x 4, Takes pills whole with water, SBA, safety precaution maintained, uses urinal at Bed side, VSS, VSS, c/o " stomach discomfort", and chonic back pain , schedule meds adm as ordered no N/V/D, no BM on this shift, pt seems pleasant, calm , comfortable, labs reviewed,
[2020-11-21 20:06] VITALS: BP 141/78
--- NOTE | 2020-11-22 04:52 | NUR ---
11-20-20 CARE TRANSFERRED 1914. PT AAOX4, VSS, RR EVEN AND NONLABORED ON RA, PT IS ASSIST X1 WITH WATER. MEDICATION TAKING WHOLE WITH NO DIFFICULTIES. PT PAIN HAS BEEN MANAGED WITH PRN MEDICATION. PT HAS USED URINAL 2 WITH NO DIFFICLUTIES. LATER PT HAD INCONTINENT, [facility]ARE PROVIDE WITH CLEAN LINENS, PT BED WAS ADJUSTED FOR COMFORT. BED ALARM ON FOR PT SAFETY.
[2020-11-22 07:41] VITALS: BP 132/71
[2020-11-22 08:34] LABS: ABSOLUTE NEUTROPHILS 4.5 thou/uL (1.4-8.2); BASOPHILS 1.3 % (0.0-2.0); EOSINOPHILS 5.6 % (0.0-3.0); HEMATOCRIT 26.7 % (42.0-52.0); HEMOGLOBIN 8.8 gm/dL (14.0-18.0); LYMPHOCYTES 18.1 % (24.0-44.0); MCH 30.8 pg (26.0-34.0); MCHC 32.9 g/dL (28.0-37.0); MCV 93.6 fL (80.0-100.0); MONOCYTES 7.6 % (1.0-8.0); PLATELET COUNT 257 thou/uL (150-400); POLYS 67.4 % (36.0-66.0); RBC 2.85 mil/uL (4.50-6.00); RDW 15.4 % (10.5-14.5); WBC 6.7 thou/uL (4.0-11.0)
[2020-11-22 08:49] LABS: ALBUMIN 2.7 g/dL (3.4-5.0); CALCIUM 8.2 mg/dL (8.5-10.1); CREATININE 0.7 mg/dL (0.7-1.3); POTASSIUM 3.7 mmol/L (3.5-5.1); TOTAL BILIRUBIN 0.3 mg/dL (0.2-1.0); TOTAL PROTEIN 5.1 g/dL (6.4-8.2)
--- NOTE | 2020-11-22 08:49 | NUR ---
PT WORKING WITH THERAPY THIS AM. PT STATED HE HAS PAIN TO LEFT HIP ILIAC CREST AREA OF 4. PT LUNGS CLEAR. PT STANDS UP TO USE URINAL TO VOID ABOUT 100ML AT A TIME. PT IS STABLE STANDING AT BEDSIDE TO USE URINAL. PT TAKES MEDS WITH THIN WATER.
[2020-11-22 20:27] VITALS: BP 130/65
--- NOTE | 2020-11-23 00:05 | NUR ---
PT ALERT AND ORIENTED X 4. STANDS AT SIDE OF BED TO USE URINAL WITH ASSIST X 1. PT TAKES MEDS WITH WATER WITHOUT DIFFICULTY. PT C/O CHRONIC BACK PAIN. ROBAXIN AND GABAPENTIN GIVEN AT HS. BED ALARM ON FOR SAFETY. PT APPEARS TO BE SLEEPING ON HOURLY ROUNDS.
[2020-11-23 11:02] VITALS: BP 111/63
--- NOTE | 2020-11-23 11:37 | NUR ---
ASSUMED CARE AT 0700. PATIENT IS ALERT AND ORIENTED X4. 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 LUNGS ARE CLEAR AND DEMINISED. ABD IS SOFT WITH BSX4. USES URINAL TO VOID QUINTEN COLORED URINE. UP IN THE W/C FOR BREAKFAST. PATIENT IS UP WITH ASSIST OF 1 STAFF AND GAIT BELT AND WALKER TO THE BATHROOM TO HAVE BM. FALL AND SAFETY PROTOCOLS IN PLACE. C/O PAIN IN HIS BACK . MEDICATED WITH PAIN PATCH. CONTINUES TO PROGRESS SLOWLY TOWARDS D/C GOALS. WILL CONTINUE TO MONITER.
--- NOTE | 2020-11-23 13:24 | NUR ---
Team meeting, recommendation had [facility] home health clinician services in the past. mod to severe cognition and memory. need assist with bills and pills. not receptive to help with medication. DC 11/25 hh ( pt, ot, st, nursing and sw ). 4ww. No driving till cleared by . Senior blue book. Will need transportation home. No contacts or support.
--- NOTE | 2020-11-23 15:26 | H ---
[facility] [place] [address] HISTORY AND PHYSICAL Name: RUDI HOOKS Room #: 513-P ADM IN M.R.#: [id number] Admission: 11/17/20 Attend Phys: Landon Gómez MD Discharge: Date of : 40 Report #: [id number] THIS REPORT FOR: cc: DALILA - No family physician/PCP FAM - No family physician/PCP Landon Gómez MD ~ DATE OF SERVICE: 11/18/2020 HISTORY OF PRESENT ILLNESS: The patient is known to me and has been admitted for acute in-hospital inpatient rehabilitation. The patient was originally admitted to [facility] on 11/12/2000 with complaints of generalized weakness and debilitation. He was found by neighbors with a foul smell coming from his home and was noted to be lying on his side covered in feces. He was unable to recall how long he had been down. His apartment was noted to be very disheveled. He has a history of chronic back pain with scoliosis and had been on chronic narcotic use of methadone and hydrocodone as per Dr. Tapia. He was diagnosed during his acute hospitalization with acute renal insufficiency with a urinary tract infection. There is a question of possible toxic metabolic encephalopathy with confusion and disorientation. He underwent a workup by GI for a low hemoglobin and was noted to have a large duodenal ulcer with likely source of recent melanotic stools and drop in hemoglobin as per EGD. He was gradually advanced and at the time of admission was on a full liquid diet. He has been admitted for acute in-hospital inpatient rehabilitation. PAST MEDICAL HISTORY: Depression, anxiety, chronic back pain, left rotator cuff surgery, right biceps surgery, right shoulder replacement, obstructive sleep apnea, anemia, COPD, stomach ulcers and left scoliosis. MEDICATIONS: Please see the full medication listing. SOCIAL HISTORY: Lives in an apartment alone, does not have any support systems, and there is no family that was listed. He is a premorbid cane versus walker ambulator. No steps. HABITS: Noted to be a pipe smoker of tobacco. REVIEW OF SYSTEMS: No complaints of chest pain, shortness of breath or abdominal discomfort. PHYSICAL EXAMINATION: GENERAL: He was seen earlier and was in no distress. VITAL SIGNS: Last recorded temperature 97.9, pulse 79, respirations 16, blood pressure 107/65. NEUROLOGIC: He was pleasant, in no obvious distress. HEENT: Head appeared to be benign. Facies were symmetric. [facility] [address] [place] [address] HISTORY AND PHYSICAL Name: RUDI HOOKS Room #: 513-P [facility]#: [id number] Admission: 11/17/20 Attend Phys: Landon Gómez MD Discharge: Date of : 40 Report #: [id number] CHEST: Sounded clear to auscultation. CARDIAC: Regular rate and rhythm. ABDOMEN: He is of slender build. Bowel sounds are positive, nontender. GENITOURINARY AND RECTAL: Deferred. Follows basic commands. There is some latency to his responses. EOMs appeared full. EXTREMITIES: He has functional range of motion of both upper extremities with strength grade 4-/5. Lower extremities, decreased distal sensation consistent with some peripheral neuropathy. Strength in lower extremities is grade 4-/5. He is needing min assist with basic transfers and attempt at short distance ambulation. ASSESSMENT: An 80-year-old white male with the following problems: 1. Gait instability with fall. 2. Probable toxic metabolic encephalopathy. Speech Therapy will be further assessing regarding his cognition. He does have the multiple medical and metabolic comorbidities. 3. Acute renal insufficiency, which has improved. 4. Urinary tract infection. 5. Duodenal bulb ulcer with hemoglobin drop. 6. Chronic pain syndrome with scoliosis, chronic narcotic usage through the Pain Clinic utilizing methadone 7. Limited support. 9. Generalized weakness and debilitation. PLAN: The patient has been admitted for acute in-hospital inpatient rehabilitation. Please see the previous and current functional status. As far as risk of complications, he has multiple medical comorbidities as noted above. Initial plan of care involves the interdisciplinary acute inpatient rehabilitation program. Measurable functional goals would be for the patient to become modified independent with transfers, mobility and ADLs as well as improvement in overall cognition, so he can return back to the home setting. Prognosis is reasonably good with estimated length of stay probably at least 7-14 days. Potential barriers would include his multiple medical comorbidities and decreased functional status. The patient meets diagnostic criteria for an acute in-hospital inpatient rehabilitation stay. He meets the medical necessity criteria. We will have the corporate learning consultant physicians continue to follow. He does have the tolerance for therapies and has appropriate discharge goals back to the home setting. ADDENDUM: Review of systems, otherwise, please see the full review of systems [address] [address] HISTORY AND PHYSICAL Name: RUDI HOOKS Room #: 513-P [facility] IN M.R.#: [id number] Admission: 11/17/20 Attend Phys: Landon Gómez MD Discharge: Date of : 40 Report #: [id number] in the documentation. Agree with the documentation with the history and physical as noted. <ELECTRONICALLY SIGNED> By: Landon Gómez MD 11/23/20 1526 1301 1317 Landon Gómez MD /nt
--- NOTE | 2020-11-23 15:27 | PLAN ---
[facility] [place] [address] REHAB UNIT PLAN OF CARE Name: RUDI HOOKS Room #: 513-P ADM IN M.R.#: [id number] Admission: 11/17/20 Attend Phys: Landon Gómez MD Discharge: Date of : 40 Report #: [id number] THIS REPORT FOR: cc: DALILA - No family physician/PCP FAM - No family physician/PCP Landon Gómez MD ~ DATE OF SERVICE: 11/20/2020 PROGRESS NOTE/OVERALL PLAN OF CARE HISTORY OF PRESENT ILLNESS: The patient is seen back in followup. He was seen earlier and was in no distress. Temperature 37, pulse 97, respirations 20, blood pressure 124/67. He was enjoying eating his food and the diet advancement. He had been on liquids prior to this. Noted to be eating 100% of his meals yesterday and 90% of his breakfast this morning. His spirits appear improved. Affect was brighter when seen. Functionally, he has been working in therapies with transfers at a contact guard assistance and gait contact guard assistance 100 feet with a standard cane. Occupational therapy lower body dressing supervision. As far as speech, he does have mild comprehensive deficits with mild to moderate cognitive deficits and moderate to severe memory deficits. ASSESSMENT: 1. Toxic metabolic encephalopathy. Appears to be improving. 2. Gait instability with fall. 3. Urinary tract infection. 4. Acute blood loss anemia. 5. Duodenal ulcer. 6. Erosive esophagitis, status post dilatation. 7. Acute renal insufficiency. 8. Chronic pain syndrome with back pain, on chronic narcotics. 9. Tobacco use. PLAN: The overall plan of care is based on the pre-admission screen and information garnered from therapy assessments. 1. Estimated length of stay is probably around 7-10 days. 2. Medical prognosis is reasonably good. 3. Anticipated interventions include the interdisciplinary acute inpatient rehabilitation program. 4. Anticipated functional outcomes would be for the patient to improve as far as strength, mobility, ADLs and cognition, so that he can return back to the home setting. 5. Discharge destination would be back home where he does live alone. 6. Expected therapy by discipline includes PT, OT and speech 1 hour per day each 5 days a week throughout the duration of the acute inpatient rehabilitation stay. [address] [address] REHAB UNIT PLAN OF CARE Name: RUDI HOOKS Room #: 513-P [facility] IN ..#: [id number] Admission: 11/17/20 Attend Phys: Landon Gómez MD Discharge: Date of : 40 Report #: [id number] ADDENDUM: The patient's prognosis for significant practical improvement within a reasonable period of time appears good. Given the patient's complex medical condition and risk of further medical complication, rehabilitation services could not be safely provided at the lower level of care such as a correction facility. We will have the image consultant physicians continue to follow with his multiple medical comorbidities. <ELECTRONICALLY SIGNED> By: Landon Gómez MD 11/23/20 1527 1201 1429 Landon Gómez MD /nt
[2020-11-23] MEDS ORDERED: NORCO 10-325 T1 EACH PO (16:02)
[2020-11-23 19:52] VITALS: BP 110/63
--- NOTE | 2020-11-24 01:35 | NUR ---
assumed care approx 1900 evening 11/23. pt lying in bed sleeping at change of shift. pt awoke approx 2100 to take hs meds. pt alert and oriented taking meds with no problems with water. pt appears to be sleeping soundly. urinal at bedside. bed alarm on and call light in reach. will continue to monitor.
--- NOTE | 2020-11-24 09:15 | NUR ---
ASSUMED CARE AT 0700. PATIENT IS ALERT AND ORIENTED X4. PATIENT GAO'S, GRTIPS ARE EQUAL. LUNGS ARE CLEAR AND DEMINISEHD. ABD IS SOFT WITH BSX4. UP IN CHAIR FOR BREAKFAST. PATIENT IS UP WITH ASSIST OF 1 STAFF AND GAIT BELT TO BATHROOM TO VOID AND HAVE BM. PATIENT ALSO USES URINAL TO VOID QUINTEN COLORED URINE. FALL AND SAFETY PROTOCOLS IN PLACE. C/O LOWER BACK PAIN. MEDICATED WITH PAIN PATCH. CONTINUES TO PROGRESS SLOWLY TOWARDS D/C GOALS. WILL CONTINUE TO MONITER. PLAN D/C 11/25/20.
--- NOTE | 2020-11-24 11:19 | NUR ---
cm visited with shyam at bedside, senior blue book provided, transportation resourced, hh list choice, referral to be sent to [facility] with sw. lives at [place] [address] [facility] [address], # [phone] for office. spoke with office staff akira, have transportation bring him to office and then will take him by golf cart to his apartment to get him new arboleda. he not seen dr kim in 5 years but ok with getting set up wit them again # [phone].
[2020-11-24] MEDS ORDERED: COLACE100 MG PO (11:41)
[2020-11-24] MEDS ORDERED: METHOCARBAMOL750 MG PO (11:41)
[2020-11-24] MEDS ORDERED: PROTONIX40 M2 PO (11:41)
[2020-11-24] MEDS ORDERED: CYMBALTA20 MG PO (11:41)
[2020-11-24] MEDS ORDERED: NEURONTIN 300M300 M2 PO (11:41)
[2020-11-24] MEDS ORDERED: CARAFATE 1 GM TA1 G1 PO (11:41)
[2020-11-24 14:35] VITALS: BP 110/63
[2020-11-24 14:50] VITALS: BP 110/63
[2020-11-24 19:50] VITALS: BP 111/61
--- NOTE | 2020-11-25 01:38 | NUR ---
assumed care approx 1900 evening 11/24. pt dozing off and on at change of shift. pt voiding per urinal. pt was sleeping and did not call out for hs meds. pt somewhat anxious this night stating he hoped his apt is ok and things work out. pt given much encouragement and positive words. pt appears to be sleeping off and on. bed alarm on and call light in reach. will continue to monitor.
[2020-11-25 08:00] VITALS: BP 116/67
--- NOTE | 2020-11-25 09:05 | NUR ---
PATIENT NEEDS A PILL-MINDER BOX. THIS IS OK PER CASE MANAGEMENT TO VOUCH FOR THIS TO BE PROVIDED BY OUT OUTPATIENT PHARM[facility]. OUTREACH TEAM MEMBER IS GOING TO CALL FOR THIS.
[2020-11-25 13:00] VITALS: BP 110/63
--- NOTE | 2020-11-25 13:20 | NUR ---
Assumed care of Pt at shift change. A/Ox 4. RA, no pain , afebrile, SBA, up w/1, safe and comfortable , all precaution in place. Pt adequate for discharge, VSS, education provided and Pt stated verbal understanding of the discharge process. Pt was transported on wc with staff and agemt to car.
--- NOTE | 2020-11-25 16:52 | NUR ---
Patient to dc home today with [facility] care. Faxed orders to [facility] and rec confirmation of receipt.
--- NOTE | 2020-11-29 16:32 | NUR ---
cm follow up with shyam to remind him that [facility] will be getting him to his 1st pcp appointment tomorrow and notified [facility] of appointment time, so they don't try and visit when he is not home.
[2020-12-03] MEDS ORDERED: CYMBALTA20 MG PO (17:22)
[2020-12-03] MEDS ORDERED: NEURONTIN 300M300 M2 PO (17:22)
[2020-12-03] MEDS ORDERED: METHOCARBAMOL750 MG PO (17:22)
[2020-12-03] MEDS ORDERED: NORCO 10-325 T1 EACH PO (17:24)
[2020-12-03] MEDS ORDERED: PROTONIX40 M2 PO (17:25)
[2020-12-03] MEDS ORDERED: COLACE100 MG PO (17:25)
[2020-12-03] MEDS ORDERED: CARAFATE 1 GM TA1 G1 PO (17:25)
== END 2020-11-25 13:00 | disposition home health service (06) | DRG 91 ==
PROVIDERS: Internal Medicine; ADMIT Physical Medicine & Rehabilitation; ATTEND Physical Medicine & Rehabilitation
DX: G92.8 Other toxic encephalopathy (principal); K22.11 Ulcer of esophagus with bleeding; K29.71 Gastritis, unspecified, with bleeding; E43 Unspecified severe protein-calorie malnutrition; N39.0 Urinary tract infection, site not specified; D62 Acute posthemorrhagic anemia; F11.20 Opioid dependence, uncomplicated; N17.9 Acute kidney failure, unspecified; R53.81 Other malaise; R26.89 Other abnormalities of gait and mobility; K26.9 Duodenal ulcer, unspecified as acute or chronic, without hemorrhage or perforation; G89.4 Chronic pain syndrome; F32.9 Major depressive disorder, single episode, unspecified; M54.9 Dorsalgia, unspecified; F41.9 Anxiety disorder, unspecified; G47.33 Obstructive sleep apnea (adult) (pediatric); J44.9 Chronic obstructive pulmonary disease, unspecified; Z96.611 Presence of right artificial shoulder joint; Z60.2 Problems related to living alone; Z87.11 Personal history of peptic ulcer disease; Z79.899 Other long term (current) drug therapy
CPT/HCPCS: 10112

== ENCOUNTER → 2020-12-24 | Outpatient (CLI) | payer OTHER, MEDICARE ==
[~2020-12-24] VITALS: Ht 170.2 cm; Wt 64.5 kg
[~2020-12-24] MED LIST changes: +CARAFATE1 GM PO; +COLACE100 MG PO; +CYMBALTA20 MG PO
[2020-12-24 09:51] VITALS: BP 132/71
--- NOTE | 2020-12-24 09:56 | NUR ---
Pain Clinic Assessment: 1. History of Osteoarthritis: BACK NECK HANDS LEFT HIP History of Rheumatoid Arthritis: Not Applicable 2. Height: 5 ft. 7 in. 170.2 cm. Weight: 142.2 lb. oz. 64.501 kg. Patient's BMI: 22.3 3. Vital Signs: BP: 132/71 Pulse: 68 Resp: 16 Temp: 02 Sat: 100 ECG Mon: 4. Pain Intensity: 3 5. Fall Risk: Dizziness: N Needs help standing or walking: N Fallen in the last 3 months: N Fall risk comments: 6. Patient on Blood Thinner: None 7. History of Hypertension: Y 8. Opioid Therapy greater than 6 weeks: Y Opiate Contract Signed: 02/01/16 9. Risk Assessment Tool Provided: LOW RISK 1 10. Functional Assessment Tool: / 11. Recreational Drug Use: Never Drug Type: Tobacco Use: Never Smoker Tobacco Type: Amount or Packs/day: How Many Years: Alcohol Use: No Frequency: Quant:
== END ==
LOC: PAIN 09:27
PROVIDERS: ATTEND Anesthesiology Pain Medicine
DX: R53.1 Weakness (principal); N28.9 Disorder of kidney and ureter, unspecified; N39.0 Urinary tract infection, site not specified; G89.4 Chronic pain syndrome; Z88.0 Allergy status to penicillin; Z79.899 Other long term (current) drug therapy

== ENCOUNTER → 2021-03-04 | Outpatient (CLI) | payer OTHER, MEDICARE ==
[~2021-03-04] VITALS: Ht 170.2 cm; Wt 59.5 kg
[2021-03-04 09:13] VITALS: BP 109/74
--- NOTE | 2021-03-04 09:21 | NUR ---
Pain Clinic Assessment: 1. History of Osteoarthritis: BACK NECK HANDS LEFT HIP History of Rheumatoid Arthritis: Not Applicable 2. Height: 5 ft. 7 in. 170.2 cm. Weight: 131.2 lb. oz. 59.512 kg. Patient's BMI: 20.5 3. Vital Signs: BP: 109/74 Pulse: 95 Resp: 20 Temp: 02 Sat: 99 ECG Mon: 4. Pain Intensity: 5 HAS BEEN UP TO 8 5. Fall Risk: Dizziness: N Needs help standing or walking: N Fallen in the last 3 months: Y Fall risk comments: 6. Patient on Blood Thinner: None 7. History of Hypertension: Y 8. Opioid Therapy greater than 6 weeks: Y Opiate Contract Signed: 02/01/16 9. Risk Assessment Tool Provided: LOW RISK 1 10. Functional Assessment Tool: 11. Recreational Drug Use: Never Drug Type: Tobacco Use: Never Smoker Tobacco Type: Amount or Packs/day: How Many Years: Alcohol Use: No Frequency: Quant:
== END ==
LOC: PAIN 06:58
PROVIDERS: ATTEND Anesthesiology Pain Medicine
DX: M16.12 Unilateral primary osteoarthritis, left hip (principal); M47.816 Spondylosis without myelopathy or radiculopathy, lumbar region; M47.812 Spondylosis without myelopathy or radiculopathy, cervical region; M19.042 Primary osteoarthritis, left hand; M19.041 Primary osteoarthritis, right hand